=== PATIENT | female | born 1955 | race Caucasian/White ===

== ENCOUNTER → 2016-04-24 | Outpatient (REF) | payer MEDICARE, MEDICAID ==
[~2016-04-24] MED LIST: ACET500C PO; ACET50TAOT PO; ACET65TA; AMLO10TA; AMLO10TA PO; AMOX875T; ASPI81TAEC PO; CALC1CAP31 PO; CARD360C PO; CLONI1TA PO; COUM2.5T11 PO; DOCU100C PO; GABA300C3 PO; GABA300T; HUMA100I3 SC; HUMA75VL SC; HUMUINJ; HYDR25TAB PO; INSUDET SC; INSULADS SC; INSULANT; INSULANT SC; INSULIN LANTUS; LASI20TA PO; LEVO150T7 PO; LIDODERM PATCH; LOPR1TAB6 PO; MILKSUS PO; MYLASUS6 PO; NOVOLOG100 MG/ML; PERC5TAB8; PRIN10TA PO; SILVER SULFADIAZINE; VASO2.5T; VITA50003 PO; ZOCO20TA PO
[2016-04-24 19:38] LABS: ALBUMIN 3.1 GM/DL (3.2-5.2); ALBUMIN/GLOBULIN RATIO 0.84 (1.00-1.93); BILIRUBIN,TOTAL 0.2 MG/DL (0.2-1.0); CALCIUM LEVEL 8.7 MG/DL (8.8-10.2); CREATININE FOR GFR 3.86 MG/DL (0.55-1.02); GLOMERULAR FILTRATION RATE 12.7 (>45); POTASSIUM SERUM 5.1 MEQ/L (3.5-5.1); TOTAL PROTEIN 6.8 GM/DL (6.4-8.2)
== END ==
LOC: M SFHCADAM 14:34
PROVIDERS: ATTEND Family Medicine
DX: E11.9 Type 2 diabetes mellitus without complications (principal); Z23 Encounter for immunization
CPT/HCPCS: 80053; 83036; 90715; G0463

== ENCOUNTER → 2016-05-08 | Outpatient (REF) | payer MEDICARE, MEDICAID | LOC: M SFHCADAM 15:02 | PROVIDERS: ATTEND Family Medicine | DX: E11.9 Type 2 diabetes mellitus without complications (principal) ==

== ENCOUNTER → 2016-05-08 | Outpatient (REF) | payer MEDICARE, MEDICAID ==
[2016-05-08 16:51] LABS: BASO % 0.4 % (0.0-1.0); EOS # 0.3 K/mm3 (0.0-0.50); EOS % 4.4 % (0.0-3.0); LARGE UNSTAINED CELL # 0.1 K/mm3 (0.0-0.4); LYMPH # 1.1 K/mm3 (1.5-4.5); LYMPH % 17.8 % (24.0-44.0); MEAN CORPUSCULAR HEMOGLOBIN 26.7 pg (27.0-33.0); MEAN CORPUSCULAR VOLUME 83.3 fl (80.0-96.0); MONO # 0.3 K/mm3 (0.0-0.8); MONO % 5.1 % (0.0-5.0); NEUTROPHILS # 4.3 K/mm3 (1.8-7.7); NEUTROPHILS % 71.3 % (36.0-66.0); PLATELET COUNT, AUTOMATED 294 k/mm3 (150-450); RED CELL DISTRIBUTION WIDTH 13.8 % (11.5-14.5)
[2016-05-08 17:00] LABS: INR 1.05
[2016-05-08 17:06] LABS: CALCIUM LEVEL 8.8 MG/DL (8.8-10.2); CREATININE FOR GFR 3.74 MG/DL (0.55-1.02); GLOMERULAR FILTRATION RATE 13.1 (>45)
[2016-05-08 17:10] LABS: POTASSIUM SERUM 5.2 MEQ/L (3.5-5.1)
== END ==
LOC: M LABDRWAD 16:33
PROVIDERS: ATTEND Surgery Vascular Surgery
DX: Z01.818 Encounter for other preprocedural examination (principal); N18.6 End stage renal disease; I12.0 Hypertensive chronic kidney disease with stage 5 chronic kidney disease or end stage renal disease; Z79.4 Long term (current) use of insulin; Z79.899 Other long term (current) drug therapy; Z79.82 Long term (current) use of aspirin; E11.319 Type 2 diabetes mellitus with unspecified diabetic retinopathy without macular edema
CPT/HCPCS: 80048; 83036; 85025; 85610; 85730; G0463

== ENCOUNTER → 2016-05-21 | Outpatient (REF) | payer MEDICARE, MEDICAID ==
[2016-05-21 18:00] LABS: PERCENT SATURATION 12.7 % (13.2-37.4)
== END ==
LOC: M LAB REF 17:13
PROVIDERS: ATTEND Internal Medicine Nephrology
DX: N18.5 Chronic kidney disease, stage 5 (principal); D63.1 Anemia in chronic kidney disease

== ENCOUNTER 2016-06-08 09:22 | Outpatient (CLI) | payer MEDICARE, MEDICAID ==
[~2016-06-08] VITALS: Ht 165.1 cm; Wt 142.3 kg
[2016-06-08] MEDS ORDERED: IRON SUCROSE 25 MG in NS 50 ML IV ONE (11:00)
[2016-06-08] MEDS ORDERED: IRON SUCROSE 475 MG in NS 250 ML IV ONE (12:00)
[2016-06-08] MEDS ORDERED: LASI80TA PO (16:43)
[2016-06-08] MEDS ORDERED: LANTINJ4 SC ×2 (16:44)
[2016-06-08] MEDS ORDERED: METO25TA PO (16:45)
[2016-06-08] MEDS ORDERED: MIRA3350 PO (16:45)
[2016-06-08] MEDS ORDERED: PROC20004 SC (16:46)
[2016-06-08] MEDS ORDERED: RENV2TAB PO (16:46)
== END 2016-06-08 15:00 | disposition home or self-care (01) ==
LOC: M INFU 09:22
PROVIDERS: ATTEND Internal Medicine Nephrology
DX: D50.9 Iron deficiency anemia, unspecified (principal)
CPT/HCPCS: 96365; 96366; J1756

== ENCOUNTER → 2016-06-24 | Day surgery (SDC) | payer MEDICAID, MEDICARE ==
[~2016-06-24] VITALS: Ht 165.1 cm; Wt 147.4 kg
[~2016-06-24] MED LIST changes: +D5W/0.2% SODIUM CHLORIDE 1,000 ML IV SCH; +GABA-282 PO; -GABA300C3 PO; +LANTINJ4 SC; +LASI80TA PO; +LIDOCAINE 2% INJ 100 MG/5 ML SDV (FOR ANES.) As Ordered ONE; +LR 1,000 ML IV SCH; +METO25TA PO; +MIRA3350 PO; +PROC20004 SC; +PROPOFOL 500 MG/50 ML VIAL As Ordered ONE; +RENV2TAB PO
--- NOTE | 2016-06-24 08:02 | ROOR ---
Patient Name: Tanya Nieto Procedure Date: 06/24/2016 7:17 AM Date of : 1955 Age: 61 Room: Main OR Gender: Female Note Status: Finalized Procedure: Upper GI endoscopy Indications: Iron deficiency anemia Providers: Eduin GODDARD MD Referring MD: ANNE-MARIE MENON MD Requesting Provider: Medicines: Monitored Anesthesia Care Complications: No immediate complications. Procedure: Pre-Anesthesia Assessment: - The heart rate, respiratory rate, oxygen saturations, blood pressure, adequacy of pulmonary ventilation, and response to care were monitored throughout the procedure. The Endoscope was introduced through the mouth, and advanced to the second part of duodenum. The upper GI endoscopy was accomplished without difficulty. The patient tolerated the procedure well. Findings: The esophagus was normal. The stomach was normal. The examined duodenum was normal. Impression: - Normal esophagus. - Normal stomach. - Normal examined duodenum. - No specimens collected. Recommendation: - Perform a colonoscopy. Eduin Goddard MD Eduin GODDARD MD 06/24/2016 8:02:01 AM This report has been signed electronically. Number of Addenda: 0 Note Initiated On: 06/24/2016 7:17 AM Estimated Blood Loss: Estimated blood loss: none.
--- NOTE | 2016-06-24 08:07 | ROOR ---
Patient Name: Tanya Nieto Procedure Date: 06/24/2016 6:20 AM Date of : 1955 Age: 61 Gender: Female Note Status: Finalized Procedure: Colonoscopy Indications: Iron deficiency anemia Providers: Eduin GODDARD MD Referring MD: ANNE-MARIE MENON MD Requesting Provider: Medicines: Monitored Anesthesia Care Complications: No immediate complications. Procedure: Pre-Anesthesia Assessment: - The heart rate, respiratory rate, oxygen saturations, blood pressure, adequacy of pulmonary ventilation, and response to care were monitored throughout the procedure. The Colonoscope was introduced through the anus with the intention of advancing to the cecum. The scope was advanced to the transverse colon before the procedure was aborted. Medications were given. Findings: The perianal and digital rectal examinations were normal. (Colon Prep was POOR, Inadequate Visualisation) Copious quantities of stool was found in the entire colon, precluding visualization. Lavage of the area was performed, resulting in incomplete clearance with continued poor visualization. Impression: - (Colon Prep was POOR, Inadequate Visualisation) - Stool in the entire examined colon. - No specimens collected. Recommendation: - Repeat colonoscopy at the next available appointment because the bowel preparation was poor. Eduin Goddard MD Eduin GODDARD MD 06/24/2016 8:07:45 AM This report has been signed electronically. Number of Addenda: 0 Note Initiated On: 06/24/2016 6:20 AM Estimated Blood Loss: Estimated blood loss: none.
[2016-06-24 08:55] VITALS: BP 168/75
== END | disposition home or self-care (01) ==
LOC: M SDC 05:59
PROVIDERS: ATTEND Internal Medicine Gastroenterology
DX: D50.9 Iron deficiency anemia, unspecified (principal); I50.9 Heart failure, unspecified; I12.0 Hypertensive chronic kidney disease with stage 5 chronic kidney disease or end stage renal disease; E78.00 Pure hypercholesterolemia, unspecified; E11.22 Type 2 diabetes mellitus with diabetic chronic kidney disease; E03.9 Hypothyroidism, unspecified; R29.898 Other symptoms and signs involving the musculoskeletal system; N18.5 Chronic kidney disease, stage 5; Z91.040 Latex allergy status; Z79.899 Other long term (current) drug therapy; Z79.82 Long term (current) use of aspirin

== ENCOUNTER → 2016-08-07 | Outpatient (REF) | payer MEDICARE, MEDICAID ==
[~2016-08-07] MED LIST changes: -D5W/0.2% SODIUM CHLORIDE 1,000 ML IV SCH; -LIDOCAINE 2% INJ 100 MG/5 ML SDV (FOR ANES.) As Ordered ONE; -LR 1,000 ML IV SCH; -PROPOFOL 500 MG/50 ML VIAL As Ordered ONE
[2016-08-07 18:40] LABS: CHOLESTEROL LEVEL 141 MG/DL (<200); TRIGLYCERIDES LEVEL 126 MG/DL (<150)
[2016-08-10 10:34] LABS: HEPATITIS B SURFACE ANTIBODY NEGATIVE (POSITIVE)
== END ==
LOC: M LAB REF 16:49
PROVIDERS: ATTEND Internal Medicine Nephrology
DX: N39.0 Urinary tract infection, site not specified (principal); N18.5 Chronic kidney disease, stage 5

== ENCOUNTER → 2016-08-10 | Outpatient (REF) | payer MEDICARE, MEDICAID | LOC: M SFHCADAM 16:03 | PROVIDERS: ATTEND Family Medicine | DX: E11.9 Type 2 diabetes mellitus without complications (principal) | CPT/HCPCS: 83036; G0463 ==

== ENCOUNTER → 2016-08-18 | Outpatient (CLI) | payer MEDICARE ==
[~2016-08-18] MED LIST changes: +HEPARIN 1,000 UNITS/ML 10ML VIAL (FOR RADIOLOGY& DIALYSIS ONLY) As Ordered ONE; +LIDOCAINE W/EPINEPHRINE 1% 20ML VIAL As Ordered ONE; +SODIUM BICARBONATE 4 % INJ 2.4MEQ 5 ML VIAL (THIS HAS A PRESERVATIVE) As Ordered ONE; +fentaNYL 100 MCG/2 ML INJECTION (J3010) As Ordered ONE
--- NOTE | 2016-08-18 15:56 | REPKIM ---
CLINICAL HISTORY: Renal failure, CHF and non-matured left forearm AVF. The referring nephrology service has requested a tunneled dialysis catheter placement for hemodialysis. PROCEDURE PERFORMED: Right IJ Tunneled Hemodialysis Catheter Placement INTERVENTIONALIST: Marta Draper MD CONSENT: The risks, benefits and alternatives to the procedure were explained to the patient and informed written consent was obtained. MEDICATIONS: Local Lidocaine and Fentanyl 50 mcg IV. Independent trained observer was present during the entire duration of the procedure for monitoring. EBL: 10 mL DEVICE USED: 14.5-Haitian 23-cm tip to cuff Palindrome Catheter Lot#[id number] FLUORO TIME: 0.6 minutes PROCEDURE/FINDINGS: The patient was brought to the interventional radiology suite where a timeout procedure was performed. The patient was placed in the supine position. The right neck and upper chest were prepped and draped in the usual sterile fashion. Real time ultrasound was used and permanent image stored. Using ultrasound guidance the internal jugular vein was punctured with a micropunture needle, after infiltration of the skin and deep tissues with local anesthetic. A 23-cm tip to cuff length, 14.5-Haitian dual lumen Palindrome hemodialysis catheter was inserted. The catheter was placed through a subcutaneous tunnel requiring a second incision. The incision at the base of the neck was closed with 4-0 Vicryl suture and covered with steristrips. The catheter was secured at the skin exit site with 2-0 Prolene suture. The ports of the catheter were locked with heparin (1000 units/mL). A sterile dressing was then applied. Post procedure chest fluoroscopy showed the tip of the catheter at the proximal right atrium. The patient tolerated the procedure well with no immediate complications. This procedure was performed using ultrasound and fluoroscopy. Dr. Draper was present. IMPRESSION: 1. Ultrasound of the neck demonstrates patent right IJ vein and compressible. 2. Successful right IJ tunneled hemodialysis catheter placement as discussed above. There is free aspiration of blood from all ports of the catheter. The catheter is ready for immediate use. cc: Abby Rodriguez MD [facility]PITALEmma
== END | disposition home or self-care (01) ==
LOC: M IRPRO 13:28
PROVIDERS: ATTEND Internal Medicine Nephrology
DX: N18.6 End stage renal disease (principal)
CPT/HCPCS: 36558; 76937; 77001; C1750; C1769; C1894; J3010

== ENCOUNTER 2017-02-03 12:43 | Emergency (ER) | payer MEDICARE, MEDICAID ==
[~2017-02-03] VITALS: Ht 160 cm; Wt 146.5 kg
[~2017-02-03 12:43] MED LIST changes: -COUM2.5T11 PO; +COUM2.5T17 PO; -DOCU100C PO; +DOCU100C16 PO; -HEPARIN 1,000 UNITS/ML 10ML VIAL (FOR RADIOLOGY& DIALYSIS ONLY) As Ordered ONE; -LIDOCAINE W/EPINEPHRINE 1% 20ML VIAL As Ordered ONE; -SODIUM BICARBONATE 4 % INJ 2.4MEQ 5 ML VIAL (THIS HAS A PRESERVATIVE) As Ordered ONE; +VITA1CAP40 PO; -VITA50003 PO; -fentaNYL 100 MCG/2 ML INJECTION (J3010) As Ordered ONE
[2017-02-03] MEDS ORDERED: NS 1,000 ML IV SCH (13:01)
[2017-02-03] MEDS ORDERED: DIALTAB2 PO (13:06)
[2017-02-03] MEDS ORDERED: CLON0.2T PO (13:06)
[2017-02-03] MEDS ORDERED: COLA100C5 PO (13:06)
[2017-02-03] MEDS ORDERED: RENV2TAB PO (13:06)
[2017-02-03] MEDS ORDERED: ONDANSETRON 4MG/2ML VIAL (J2405) IV ONE (13:15)
[2017-02-03] MEDS ORDERED: PANTOPRAZOLE 40MG INJ (PROTONIX) (C9113) IV ONE (13:15)
[2017-02-03] MEDS ORDERED: LABETALOL HCL 100 MG/20 ML VIAL IV STA (14:15)
[2017-02-03 14:24] LABS: BASO % 0.2 % (0.0-1.0); EOS % 0.2 % (0.0-3.0); IMMATURE GRANULOCYTE % 0.5 % (0-0); LYMPH # 0.9 10^3/uL (1.5-4.5); MEAN CORPUSCULAR HEMOGLOBIN 32.3 pg (27.0-33.0); MEAN CORPUSCULAR HGB CONC 33.7 g/dl (32.0-36.5); MEAN CORPUSCULAR VOLUME 95.8 fl (80.0-96.0); MONO # 0.4 10^3/uL (0.0-0.8); MONO % 9.2 % (0.0-5.0); NEUTROPHILS # 2.9 10^3/uL (1.8-7.7); NEUTROPHILS % 68.9 % (36.0-66.0); PLATELET COUNT, AUTOMATED 128 10^3/uL (150-450); RED CELL DISTRIBUTION WIDTH 13.7 % (11.5-14.5); WHITE BLOOD COUNT 4.2 10^3/uL (4.0-10.0)
[2017-02-03 14:49] LABS: ALBUMIN 3.2 GM/DL (3.2-5.2); ALBUMIN/GLOBULIN RATIO 0.97 (1.00-1.93); BILIRUBIN,DIRECT 0.1 MG/DL (0.0-0.2); BILIRUBIN,TOTAL 0.3 MG/DL (0.2-1.0); CALCIUM LEVEL 8.5 MG/DL (8.8-10.2); CREATININE FOR GFR 3.66 MG/DL (0.55-1.02); GLOMERULAR FILTRATION RATE 13.5 (>45); POTASSIUM SERUM 4.8 MEQ/L (3.5-5.1); TOTAL PROTEIN 6.5 GM/DL (6.4-8.2)
[2017-02-03 15:28] VITALS: BP 198/91
[2017-02-03 16:21] VITALS: BP 140/66
[2017-02-03] MEDS ORDERED: ZOFR4TAB3 PO (16:24)
--- NOTE | 2017-02-03 21:02 | REP ---
Abdomen series: Four views. History: Abdomen pain. Comparison: Chest x-ray October 07, 2015. Findings: Upright chest radiograph shows EKG monitoring electrodes. A right internal jugular tunneled catheter is seen in place with its tip in the expected location of the right atrium. Mild cardiomegaly is observed. Pulmonary vasculature is cephalized. These findings are unchanged. There is no evidence of infiltrate or free subdiaphragmatic air. Supine and cross-table lateral views of the abdomen show no evidence of free air. The bowel gas pattern is normal with air and stool in a nondistended colon. No small or large bowel dilation is seen. There is some vascular calcification. No bony destructive lesion is seen. Impression: Normal bowel gas pattern. No evidence of infiltrate or free air. Cardiomegaly. Central venous line. Pulmonary vascular cephalization. Signed by Antolin Mcgregor MD 02/04/2017 07:40 A
--- NOTE | 2017-02-04 08:55 | ED PDOC ---
Post-Departure Follow-Up radiology report faxed to Roula Altman MD Feb 04, 2017 08:55
== END 2017-02-03 16:44 | disposition home or self-care (01) ==
LOC: EDBD 12:43 → M ED 12:43
DX: I11.0 Hypertensive heart disease with heart failure (principal); R11.10 Vomiting, unspecified; I50.9 Heart failure, unspecified; I25.10 Atherosclerotic heart disease of native coronary artery without angina pectoris; E11.9 Type 2 diabetes mellitus without complications; Z79.4 Long term (current) use of insulin; Z79.82 Long term (current) use of aspirin; Z79.899 Other long term (current) drug therapy; Z91.040 Latex allergy status
CPT/HCPCS: 36415; 74022; 80048; 80076; 83690; 85025; 96374; 96375; 99285; C9113; J2405

== ENCOUNTER → 2017-05-14 | Outpatient (CLI) | payer MEDICARE, MEDICAID ==
[~2017-05-14] MED LIST changes: -ACET500C PO; -ACET50TAOT PO; -ACET65TA; -AMLO10TA; -AMLO10TA PO; -AMOX875T; -ASPI81TAEC PO; -CALC1CAP31 PO; -CARD360C PO; -CLONI1TA PO; -COUM2.5T17 PO; -DOCU100C16 PO; -GABA-282 PO; -GABA300T; -HUMA100I3 SC; -HUMA75VL SC; -HUMUINJ; -HYDR25TAB PO; -INSUDET SC; -INSULADS SC; -INSULANT; -INSULANT SC; -INSULIN LANTUS; -LANTINJ4 SC; -LASI20TA PO; -LASI80TA PO; -LEVO150T7 PO; +LIDOCAINE 1% MDV 20ML VIAL As Ordered; -LIDODERM PATCH; -LOPR1TAB6 PO; -METO25TA PO; -MILKSUS PO; -MIRA3350 PO; -MYLASUS6 PO; -NOVOLOG100 MG/ML; -PERC5TAB8; -PRIN10TA PO; -PROC20004 SC; -RENV2TAB PO; -SILVER SULFADIAZINE; -VASO2.5T; -VITA1CAP40 PO; -ZOCO20TA PO
== END | disposition home or self-care (01) ==
LOC: M IRPRO 10:47
DX: Z45.2 Encounter for adjustment and management of vascular access device (principal); N18.6 End stage renal disease
CPT/HCPCS: 36589

== ENCOUNTER 2017-07-15 17:18 | Inpatient (IN) | payer MEDICARE, MEDICAID ==
[2017-07-15 20:47] LABS: HEMATOCRIT 35.8 % (36.0-47.0); HEMOGLOBIN 11.8 g/dl (12.0-15.5); MEAN CORPUSCULAR HEMOGLOBIN 30.3 pg (27.0-33.0); PLATELET COUNT, AUTOMATED 183 10^3/uL (150-450); RED BLOOD COUNT 3.89 10^6/uL (4.00-5.40); RED CELL DISTRIBUTION WIDTH 13.2 % (11.5-14.5); WHITE BLOOD COUNT 6.5 10^3/uL (4.0-10.0)
[2017-07-15 20:58] LABS: INR 2.01; PROTHROMBIN TIME 23.5 SECONDS (12.4-14.5)
[2017-07-15] MEDS: LEVEMIR (INSULIN DETEMIR) 1 UNITS/0.01ML SC (21:00)
[2017-07-15] MEDS: SIMVASTATIN 20 MG TAB PO (21:00)
[2017-07-15 21:12] LABS: ALBUMIN 3.5 GM/DL (3.2-5.2); ALKALINE PHOSPHATASE 113 U/L (45-117); ALT/SGPT 21 U/L (12-78); ANION GAP 7 MEQ/L (8-16); AST/SGOT 16 U/L (7-37); BILIRUBIN,TOTAL 0.4 MG/DL (0.2-1.0); BLOOD UREA NITROGEN 19 MG/DL (7-18); CALCIUM LEVEL 8.6 MG/DL (8.8-10.2); CARBON DIOXIDE LEVEL 31 MEQ/L (21-32); CHLORIDE LEVEL 102 MEQ/L (98-107); CREATININE FOR GFR 2.64 MG/DL (0.55-1.30); GLOMERULAR FILTRATION RATE 19.6 (>45); GLUCOSE, FASTING 128 MG/DL (70-100); POTASSIUM SERUM 3.8 MEQ/L (3.5-5.1); SODIUM LEVEL 140 MEQ/L (136-145); TOTAL PROTEIN 7.4 GM/DL (6.4-8.2)
[2017-07-15] MEDS ORDERED: BISACODYL 5 MG TAB PO (21:30)
[2017-07-15] MEDS ORDERED: DEXTROSE 50% 50 ML SYRINGE IV (22:00)
[2017-07-15] MEDS ORDERED: GLUCAGON FOR INJ 1 MG VIAL (J1610) SC (22:00)
[2017-07-15] MEDS ORDERED: GLUCOSE 4 GM CHEW TABLET PO (22:00)
[2017-07-15 22:48] LABS: BEDSIDE GLUCOSE 104 MG/DL (80-115)
[2017-07-15] MEDS: GABAPENTIN 300 MG CAP PO (23:49)
[2017-07-15] MEDS: SENOKOT S TAB PO (23:49)
[2017-07-15] MEDS: cloNIDine 0.2 MG TAB PO (23:53)
[2017-07-16] MEDS: NORCO, ANEXSIA 5/325MG TABLET (HYDROcodone/ACETAMINOPHEN) PO ×3 (01:24→12:49)
[2017-07-16] MEDS: LEVOTHYROXINE 150MCG TABLET (0.15MG) PO (05:39)
[2017-07-16 06:32] LABS: BEDSIDE GLUCOSE 113 MG/DL (80-115)
[2017-07-16] MEDS: LEVEMIR (INSULIN DETEMIR) 1 UNITS/0.01ML SC ×2 (07:49→21:04)
[2017-07-16] MEDS: HumaLOG INSULIN (NovoLOG) PER UNIT SC ×4 (07:49→21:04)
[2017-07-16] MEDS: SENOKOT S TAB PO ×2 (07:50→21:01)
[2017-07-16] MEDS: cloNIDine 0.2 MG TAB PO ×2 (07:50→21:07)
[2017-07-16] MEDS: (RENVELA) SEVELAMER **CARBONate** 800 MG TAB PO ×3 (07:50→18:11)
[2017-07-16 07:53] LABS: BEDSIDE GLUCOSE 117 MG/DL (80-115)
[2017-07-16 11:54] LABS: BEDSIDE GLUCOSE 136 MG/DL (80-115)
[2017-07-16 17:04] LABS: BEDSIDE GLUCOSE 133 MG/DL (80-115)
[2017-07-16] MEDS: WARFARIN SOD 3 MG TAB PO (18:11)
[2017-07-16 20:29] LABS: BEDSIDE GLUCOSE 107 MG/DL (80-115)
[2017-07-16] MEDS: GABAPENTIN 300 MG CAP PO (21:01)
[2017-07-16] MEDS: SIMVASTATIN 20 MG TAB PO (21:08)
[2017-07-17 05:30] LABS: HEMATOCRIT 32.1 % (36.0-47.0); HEMOGLOBIN 10.5 g/dl (12.0-15.5); MEAN CORPUSCULAR HEMOGLOBIN 31.1 pg (27.0-33.0); MEAN CORPUSCULAR HGB CONC 32.7 g/dl (32.0-36.5); PLATELET COUNT, AUTOMATED 176 10^3/uL (150-450); RED BLOOD COUNT 3.38 10^6/uL (4.00-5.40); RED CELL DISTRIBUTION WIDTH 13.3 % (11.5-14.5); WHITE BLOOD COUNT 7.2 10^3/uL (4.0-10.0)
[2017-07-17 05:42] LABS: INR 1.63; PROTHROMBIN TIME 19.8 SECONDS (12.4-14.5)
[2017-07-17 05:57] LABS: ALBUMIN 2.9 GM/DL (3.2-5.2); ALBUMIN/GLOBULIN RATIO 0.76 (1.00-1.93); ALKALINE PHOSPHATASE 87 U/L (45-117); ALT/SGPT 18 U/L (12-78); ANION GAP 7 MEQ/L (8-16); AST/SGOT 16 U/L (7-37); BILIRUBIN,TOTAL 0.4 MG/DL (0.2-1.0); CALCIUM LEVEL 8.4 MG/DL (8.8-10.2); CARBON DIOXIDE LEVEL 30 MEQ/L (21-32); CHLORIDE LEVEL 104 MEQ/L (98-107); GLUCOSE, FASTING 172 MG/DL (70-100); POTASSIUM SERUM 4.3 MEQ/L (3.5-5.1); SODIUM LEVEL 141 MEQ/L (136-145); TOTAL PROTEIN 6.7 GM/DL (6.4-8.2)
[2017-07-17] MEDS: (RENVELA) SEVELAMER **CARBONate** 800 MG TAB PO ×3 (06:08→18:07)
[2017-07-17] MEDS: SENOKOT S TAB PO ×2 (06:08→20:49)
[2017-07-17] MEDS: LEVOTHYROXINE 150MCG TABLET (0.15MG) PO (06:08)
[2017-07-17] MEDS: cloNIDine 0.2 MG TAB PO ×2 (06:16→20:48)
[2017-07-17 06:20] LABS: GLOMERULAR FILTRATION RATE 10.9 (>45)
[2017-07-17 06:23] LABS: BLOOD UREA NITROGEN 38 MG/DL (7-18); CREATININE FOR GFR 4.39 MG/DL (0.55-1.30)
[2017-07-17] MEDS: LEVEMIR (INSULIN DETEMIR) 1 UNITS/0.01ML SC ×2 (06:45→20:49)
[2017-07-17] MEDS: HumaLOG INSULIN (NovoLOG) PER UNIT SC ×4 (06:58→20:35)
[2017-07-17] MEDS: NORCO, ANEXSIA 5/325MG TABLET (HYDROcodone/ACETAMINOPHEN) PO (09:18)
[2017-07-17] MEDS: LIDOCAINE 1% SDV 5 ML VIAL SQ (10:30)
[2017-07-17] MEDS: HEPARIN 1,000 UNITS/ML 10ML VIAL (FOR RADIOLOGY& DIALYSIS ONLY) IV (10:30)
[2017-07-17 11:48] LABS: BEDSIDE GLUCOSE 172 MG/DL (80-115)
[2017-07-17] MEDS: WARFARIN SOD 4 MG TAB PO (18:05)
[2017-07-17 18:07] LABS: BEDSIDE GLUCOSE 126 MG/DL (80-115)
[2017-07-17 20:32] LABS: BEDSIDE GLUCOSE 173 MG/DL (80-115)
[2017-07-17] MEDS: GABAPENTIN 300 MG CAP PO (20:47)
[2017-07-17] MEDS: SIMVASTATIN 20 MG TAB PO (20:48)
[2017-07-17] MEDS: ONDANSETRON 4MG/2ML VIAL (J2405) IV (21:50)
[2017-07-18 05:38] LABS: HEMOGLOBIN 10.6 g/dl (12.0-15.5); MEAN CORPUSCULAR HEMOGLOBIN 31.5 pg (27.0-33.0); MEAN CORPUSCULAR HGB CONC 33.1 g/dl (32.0-36.5); MEAN CORPUSCULAR VOLUME 95.2 fl (80.0-96.0); PLATELET COUNT, AUTOMATED 171 10^3/uL (150-450); RED BLOOD COUNT 3.36 10^6/uL (4.00-5.40); WHITE BLOOD COUNT 6.7 10^3/uL (4.0-10.0)
[2017-07-18 05:55] LABS: INR 1.78; PROTHROMBIN TIME 21.2 SECONDS (12.4-14.5)
[2017-07-18 06:03] LABS: ALBUMIN 2.8 GM/DL (3.2-5.2); ALBUMIN/GLOBULIN RATIO 0.72 (1.00-1.93); ALKALINE PHOSPHATASE 87 U/L (45-117); ALT/SGPT 15 U/L (12-78); ANION GAP 5 MEQ/L (8-16); AST/SGOT 14 U/L (7-37); BILIRUBIN,TOTAL 0.4 MG/DL (0.2-1.0); BLOOD UREA NITROGEN 24 MG/DL (7-18); CALCIUM LEVEL 8.3 MG/DL (8.8-10.2); CARBON DIOXIDE LEVEL 31 MEQ/L (21-32); CHLORIDE LEVEL 104 MEQ/L (98-107); CREATININE FOR GFR 3.34 MG/DL (0.55-1.30); GLOMERULAR FILTRATION RATE 14.9 (>45); GLUCOSE, FASTING 177 MG/DL (70-100); POTASSIUM SERUM 4.4 MEQ/L (3.5-5.1); SODIUM LEVEL 140 MEQ/L (136-145); TOTAL PROTEIN 6.7 GM/DL (6.4-8.2)
[2017-07-18] MEDS: LEVOTHYROXINE 150MCG TABLET (0.15MG) PO (06:03)
[2017-07-18] MEDS: HumaLOG INSULIN (NovoLOG) PER UNIT SC ×4 (08:30→20:29)
[2017-07-18] MEDS: LEVEMIR (INSULIN DETEMIR) 1 UNITS/0.01ML SC ×2 (08:31→20:58)
[2017-07-18] MEDS: (RENVELA) SEVELAMER **CARBONate** 800 MG TAB PO ×3 (08:31→17:50)
[2017-07-18] MEDS: SENOKOT S TAB PO ×2 (08:32→20:56)
[2017-07-18] MEDS: cloNIDine 0.2 MG TAB PO ×2 (08:32→20:57)
[2017-07-18 11:46] LABS: BEDSIDE GLUCOSE 204 MG/DL (80-115)
[2017-07-18] MEDS ORDERED: WARFARIN SOD 4 MG TAB PO (17:00)
[2017-07-18 17:18] LABS: BEDSIDE GLUCOSE 168 MG/DL (80-115)
[2017-07-18] MEDS: WARFARIN SOD 5 MG TAB PO (17:49)
[2017-07-18 20:44] LABS: BEDSIDE GLUCOSE 140 MG/DL (80-115)
[2017-07-18] MEDS: GABAPENTIN 300 MG CAP PO (20:56)
[2017-07-18] MEDS: OMEPRAZOLE 20 MG CAP PO (20:57)
[2017-07-18] MEDS: SIMVASTATIN 20 MG TAB PO (20:58)
[2017-07-19] MEDS: LEVOTHYROXINE 150MCG TABLET (0.15MG) PO (05:53)
[2017-07-19 06:04] LABS: HEMATOCRIT 31.5 % (36.0-47.0); HEMOGLOBIN 10.7 g/dl (12.0-15.5); MEAN CORPUSCULAR HEMOGLOBIN 32.5 pg (27.0-33.0); MEAN CORPUSCULAR VOLUME 95.7 fl (80.0-96.0); PLATELET COUNT, AUTOMATED 181 10^3/uL (150-450); RED BLOOD COUNT 3.29 10^6/uL (4.00-5.40); RED CELL DISTRIBUTION WIDTH 13.2 % (11.5-14.5); WHITE BLOOD COUNT 7.6 10^3/uL (4.0-10.0)
[2017-07-19 06:31] LABS: INR 1.98; PROTHROMBIN TIME 23.2 SECONDS (12.4-14.5)
[2017-07-19 06:33] LABS: ALBUMIN 2.6 GM/DL (3.2-5.2); ALBUMIN/GLOBULIN RATIO 0.63 (1.00-1.93); ALKALINE PHOSPHATASE 81 U/L (45-117); ALT/SGPT 12 U/L (12-78); ANION GAP 9 MEQ/L (8-16); AST/SGOT 16 U/L (7-37); BILIRUBIN,TOTAL 0.3 MG/DL (0.2-1.0); BLOOD UREA NITROGEN 40 MG/DL (7-18); CALCIUM LEVEL 8.4 MG/DL (8.8-10.2); CARBON DIOXIDE LEVEL 25 MEQ/L (21-32); CHLORIDE LEVEL 106 MEQ/L (98-107); CREATININE FOR GFR 4.72 MG/DL (0.55-1.30); GLUCOSE, FASTING 108 MG/DL (70-100); POTASSIUM SERUM 4.5 MEQ/L (3.5-5.1); SODIUM LEVEL 140 MEQ/L (136-145); TOTAL PROTEIN 6.7 GM/DL (6.4-8.2)
[2017-07-19 06:36] LABS: BEDSIDE GLUCOSE 109 MG/DL (80-115)
[2017-07-19] MEDS: (RENVELA) SEVELAMER **CARBONate** 800 MG TAB PO ×3 (08:18→17:15)
[2017-07-19] MEDS: SENOKOT S TAB PO ×3 (08:18→22:06)
[2017-07-19] MEDS: cloNIDine 0.2 MG TAB PO ×2 (08:19→22:06)
[2017-07-19] MEDS: LEVEMIR (INSULIN DETEMIR) 1 UNITS/0.01ML SC ×2 (08:20→22:07)
[2017-07-19] MEDS: HumaLOG INSULIN (NovoLOG) PER UNIT SC ×4 (08:21→21:00)
[2017-07-19] MEDS: NORCO, ANEXSIA 5/325MG TABLET (HYDROcodone/ACETAMINOPHEN) PO ×2 (08:44→17:13)
[2017-07-19 12:30] LABS: BEDSIDE GLUCOSE 220 MG/DL (80-115)
[2017-07-19 17:07] LABS: BEDSIDE GLUCOSE 177 MG/DL (80-115)
[2017-07-19] MEDS: WARFARIN SOD 3 MG TAB PO (17:08)
[2017-07-19 20:46] LABS: BEDSIDE GLUCOSE 214 MG/DL (80-115)
[2017-07-19] MEDS: GABAPENTIN 300 MG CAP PO (22:06)
[2017-07-19] MEDS: SIMVASTATIN 20 MG TAB PO (22:06)
[2017-07-20] MEDS: NORCO, ANEXSIA 5/325MG TABLET (HYDROcodone/ACETAMINOPHEN) PO (01:05)
[2017-07-20 06:01] LABS: INR 2.42; PROTHROMBIN TIME 27.3 SECONDS (12.4-14.5)
[2017-07-20] MEDS: SENOKOT S TAB PO ×2 (06:07→21:49)
[2017-07-20] MEDS: LEVOTHYROXINE 150MCG TABLET (0.15MG) PO (06:08)
[2017-07-20] MEDS: cloNIDine 0.2 MG TAB PO ×2 (06:10→21:49)
[2017-07-20 06:12] LABS: ALBUMIN 2.8 GM/DL (3.2-5.2); ALKALINE PHOSPHATASE 83 U/L (45-117); ALT/SGPT 14 U/L (12-78); ANION GAP 7 MEQ/L (8-16); AST/SGOT 17 U/L (7-37); BILIRUBIN,TOTAL 0.3 MG/DL (0.2-1.0); BLOOD UREA NITROGEN 58 MG/DL (7-18); CALCIUM LEVEL 8.2 MG/DL (8.8-10.2); CARBON DIOXIDE LEVEL 28 MEQ/L (21-32); CHLORIDE LEVEL 103 MEQ/L (98-107); CREATININE FOR GFR 5.24 MG/DL (0.55-1.30); GLOMERULAR FILTRATION RATE 8.9 (>45); GLUCOSE, FASTING 178 MG/DL (70-100); POTASSIUM SERUM 4.5 MEQ/L (3.5-5.1); SODIUM LEVEL 138 MEQ/L (136-145); TOTAL PROTEIN 6.3 GM/DL (6.4-8.2)
[2017-07-20] MEDS: (RENVELA) SEVELAMER **CARBONate** 800 MG TAB PO ×3 (06:41→17:47)
[2017-07-20] MEDS: HumaLOG INSULIN (NovoLOG) PER UNIT SC ×4 (07:08→21:00)
[2017-07-20] MEDS: LEVEMIR (INSULIN DETEMIR) 1 UNITS/0.01ML SC ×2 (07:09→21:52)
[2017-07-20 12:07] LABS: BEDSIDE GLUCOSE 174 MG/DL (80-115)
[2017-07-20] MEDS: BETAMETHASONE VAL 0.1% CR 15 GM TOP ×2 (12:29→22:56)
[2017-07-20 17:15] LABS: BEDSIDE GLUCOSE 144 MG/DL (80-115)
[2017-07-20] MEDS: WARFARIN SOD 3 MG TAB PO (17:46)
[2017-07-20] MEDS: ONDANSETRON 4 MG TAB (S0181) PO (17:53)
[2017-07-20 20:26] LABS: BEDSIDE GLUCOSE 198 MG/DL (80-115)
[2017-07-20] MEDS: SIMVASTATIN 20 MG TAB PO (21:49)
[2017-07-20] MEDS: GABAPENTIN 300 MG CAP PO (21:50)
[2017-07-21 02:13] LABS: BEDSIDE GLUCOSE 214 MG/DL (80-115)
[2017-07-21 06:24] LABS: ALBUMIN 2.8 GM/DL (3.2-5.2); ALBUMIN/GLOBULIN RATIO 0.76 (1.00-1.93); ALKALINE PHOSPHATASE 86 U/L (45-117); ALT/SGPT 14 U/L (12-78); ANION GAP 8 MEQ/L (8-16); AST/SGOT 15 U/L (7-37); BILIRUBIN,TOTAL 0.3 MG/DL (0.2-1.0); BLOOD UREA NITROGEN 35 MG/DL (7-18); CALCIUM LEVEL 8.1 MG/DL (8.8-10.2); CARBON DIOXIDE LEVEL 28 MEQ/L (21-32); CHLORIDE LEVEL 103 MEQ/L (98-107); CREATININE FOR GFR 4.08 MG/DL (0.55-1.30); GLOMERULAR FILTRATION RATE 11.8 (>45); GLUCOSE, FASTING 191 MG/DL (70-100); POTASSIUM SERUM 4.2 MEQ/L (3.5-5.1); SODIUM LEVEL 139 MEQ/L (136-145); TOTAL PROTEIN 6.5 GM/DL (6.4-8.2)
[2017-07-21] MEDS: LEVOTHYROXINE 150MCG TABLET (0.15MG) PO (06:49)
[2017-07-21 08:02] LABS: INR 2.11; PROTHROMBIN TIME 24.4 SECONDS (12.4-14.5)
[2017-07-21] MEDS: cloNIDine 0.2 MG TAB PO ×2 (08:46→20:50)
[2017-07-21] MEDS: HumaLOG INSULIN (NovoLOG) PER UNIT SC ×4 (08:47→20:50)
[2017-07-21] MEDS: LEVEMIR (INSULIN DETEMIR) 1 UNITS/0.01ML SC ×2 (08:47→20:51)
[2017-07-21] MEDS: (RENVELA) SEVELAMER **CARBONate** 800 MG TAB PO ×3 (08:47→17:41)
[2017-07-21] MEDS: SENOKOT S TAB PO ×2 (08:47→20:50)
[2017-07-21] MEDS: BETAMETHASONE VAL 0.1% CR 15 GM TOP ×2 (08:48→20:53)
[2017-07-21 12:28] LABS: BEDSIDE GLUCOSE 240 MG/DL (80-115)
[2017-07-21] MEDS: NORCO, ANEXSIA 5/325MG TABLET (HYDROcodone/ACETAMINOPHEN) PO (12:54)
[2017-07-21 17:21] LABS: BEDSIDE GLUCOSE 182 MG/DL (80-115)
[2017-07-21] MEDS: WARFARIN SOD 3 MG TAB PO (17:41)
[2017-07-21] MEDS: ONDANSETRON 4 MG TAB (S0181) PO (20:48)
[2017-07-21] MEDS: SIMVASTATIN 20 MG TAB PO (20:49)
[2017-07-21] MEDS: GABAPENTIN 300 MG CAP PO (20:49)
[2017-07-21 21:24] LABS: BEDSIDE GLUCOSE 239 MG/DL (80-115)
[2017-07-22] MEDS: LEVOTHYROXINE 150MCG TABLET (0.15MG) PO (06:18)
[2017-07-22] MEDS: (RENVELA) SEVELAMER **CARBONate** 800 MG TAB PO ×4 (06:49→18:00)
[2017-07-22] MEDS: cloNIDine 0.2 MG TAB PO ×2 (06:49→20:38)
[2017-07-22] MEDS: SENOKOT S TAB PO ×2 (06:55→20:38)
[2017-07-22] MEDS: LEVEMIR (INSULIN DETEMIR) 1 UNITS/0.01ML SC ×2 (06:55→20:39)
[2017-07-22] MEDS: HumaLOG INSULIN (NovoLOG) PER UNIT SC ×4 (07:06→20:28)
[2017-07-22 07:36] LABS: BEDSIDE GLUCOSE 183 MG/DL (80-115)
[2017-07-22] MEDS: HEPARIN 1,000 UNITS/ML 10ML VIAL (FOR RADIOLOGY& DIALYSIS ONLY) IV (11:15)
[2017-07-22 13:17] LABS: BEDSIDE GLUCOSE 117 MG/DL (80-115)
[2017-07-22] MEDS: BETAMETHASONE VAL 0.1% CR 15 GM TOP ×2 (13:45→20:39)
[2017-07-22 17:59] LABS: BEDSIDE GLUCOSE 175 MG/DL (80-115)
[2017-07-22] MEDS: WARFARIN SOD 3 MG TAB PO (18:20)
[2017-07-22] MEDS: ONDANSETRON 4 MG TAB (S0181) PO (18:20)
[2017-07-22 20:32] LABS: BEDSIDE GLUCOSE 173 MG/DL (80-115)
[2017-07-22] MEDS: SIMVASTATIN 20 MG TAB PO (20:38)
[2017-07-22] MEDS: GABAPENTIN 300 MG CAP PO (20:38)
[2017-07-23] MEDS: LEVOTHYROXINE 150MCG TABLET (0.15MG) PO (05:35)
[2017-07-23 06:45] LABS: BEDSIDE GLUCOSE 166 MG/DL (80-115)
[2017-07-23] MEDS: SENOKOT S TAB PO (07:43)
[2017-07-23] MEDS: LEVEMIR (INSULIN DETEMIR) 1 UNITS/0.01ML SC (07:43)
[2017-07-23] MEDS: (RENVELA) SEVELAMER **CARBONate** 800 MG TAB PO (07:43)
[2017-07-23] MEDS: HumaLOG INSULIN (NovoLOG) PER UNIT SC (07:43)
[2017-07-23] MEDS: BETAMETHASONE VAL 0.1% CR 15 GM TOP (07:44)
[2017-07-23] MEDS: cloNIDine 0.2 MG TAB PO (07:44)
== END 2017-07-23 10:10 | DRG 562 ==
LOC: M MSPAV 07-17 23:44 → M ED 17:18 → M ED INP 21:22 → M MSPAV 23:04
PROC: 5A1D70Z Performance of Urinary Filtration, Intermittent, Less than 6 Hours Per Day (ICD-10-PCS; principal; 2017-07-17)
DX: S82.142A Displaced bicondylar fracture of left tibia, initial encounter for closed fracture (principal); N18.6 End stage renal disease; I13.2 Hypertensive heart and chronic kidney disease with heart failure and with stage 5 chronic kidney disease, or end stage renal disease; Z68.43 Body mass index [BMI] 50.0-59.9, adult; I50.32 Chronic diastolic (congestive) heart failure; E11.22 Type 2 diabetes mellitus with diabetic chronic kidney disease; E78.5 Hyperlipidemia, unspecified; E03.9 Hypothyroidism, unspecified; E66.01 Morbid (severe) obesity due to excess calories; I89.0 Lymphedema, not elsewhere classified; E11.319 Type 2 diabetes mellitus with unspecified diabetic retinopathy without macular edema; H54.8 Legal blindness, as defined in USA; I87.2 Venous insufficiency (chronic) (peripheral); E11.610 Type 2 diabetes mellitus with diabetic neuropathic arthropathy; E11.40 Type 2 diabetes mellitus with diabetic neuropathy, unspecified; D63.1 Anemia in chronic kidney disease; I65.23 Occlusion and stenosis of bilateral carotid arteries; E83.39 Other disorders of phosphorus metabolism; W05.0XXA Fall from non-moving wheelchair, initial encounter; Y92.013 Bedroom of single-family (private) house as the place of occurrence of the external cause; Z99.2 Dependence on renal dialysis; Z99.3 Dependence on wheelchair; Z86.718 Personal history of other venous thrombosis and embolism; Z79.01 Long term (current) use of anticoagulants; Z79.4 Long term (current) use of insulin; Z79.899 Other long term (current) drug therapy

== ENCOUNTER → 2017-07-27 | Outpatient (REF) ==
[2017-07-27 10:37] LABS: HEMOGLOBIN 11.2 g/dl (12.0-15.5); MEAN CORPUSCULAR HEMOGLOBIN 32.6 pg (27.0-33.0); MEAN CORPUSCULAR HGB CONC 33.9 g/dl (32.0-36.5); MEAN CORPUSCULAR VOLUME 95.9 fl (80.0-96.0); PLATELET COUNT, AUTOMATED 232 10^3/uL (150-450); RED BLOOD COUNT 3.44 10^6/uL (4.00-5.40); RED CELL DISTRIBUTION WIDTH 13.3 % (11.5-14.5); WHITE BLOOD COUNT 5.1 10^3/uL (4.0-10.0)
[2017-07-27 11:00] LABS: ANION GAP 10 MEQ/L (8-16); BLOOD UREA NITROGEN 52 MG/DL (7-18); CALCIUM LEVEL 8.4 MG/DL (8.8-10.2); CARBON DIOXIDE LEVEL 29 MEQ/L (21-32); CHLORIDE LEVEL 102 MEQ/L (98-107); CREATININE FOR GFR 6.33 MG/DL (0.55-1.30); GLOMERULAR FILTRATION RATE 7.1 (>45); GLUCOSE, FASTING 109 MG/DL (70-100); POTASSIUM SERUM 3.7 MEQ/L (3.5-5.1); SODIUM LEVEL 141 MEQ/L (136-145)
[2017-07-27 12:29] LABS: ESTIMATED AVERAGE GLUCOSE 166 MG/DL (60-110); HEMOGLOBIN A1c 7.4 %
== END ==
DX: E03.9 Hypothyroidism, unspecified (principal); E11.9 Type 2 diabetes mellitus without complications; N18.6 End stage renal disease

== ENCOUNTER → 2017-08-02 | Outpatient (REF) ==
[2017-08-02 19:28] LABS: HEMATOCRIT 36.6 % (36.0-47.0); HEMOGLOBIN 12.1 g/dl (12.0-15.5); MEAN CORPUSCULAR HEMOGLOBIN 31.2 pg (27.0-33.0); MEAN CORPUSCULAR HGB CONC 33.1 g/dl (32.0-36.5); MEAN CORPUSCULAR VOLUME 94.3 fl (80.0-96.0); PLATELET COUNT, AUTOMATED 190 10^3/uL (150-450); RED BLOOD COUNT 3.88 10^6/uL (4.00-5.40); RED CELL DISTRIBUTION WIDTH 13.7 % (11.5-14.5); WHITE BLOOD COUNT 14.8 10^3/uL (4.0-10.0)
== END ==
DX: R50.9 Fever, unspecified (principal)

== ENCOUNTER 2017-08-03 10:39 | Emergency (ER) | payer MEDICARE, MEDICAID, BC ==
[2017-08-03] MEDS: NORCO, ANEXSIA 5/325MG TABLET (HYDROcodone/ACETAMINOPHEN) PO ×2 (11:45)
[2017-08-03] MEDS: ONDANSETRON 4MG/2ML VIAL (J2405) IV ×6 (11:45→19:41)
[2017-08-03 11:46] LABS: BASO % 0.1 % (0.0-1.0); HEMATOCRIT 38.4 % (36.0-47.0); HEMOGLOBIN 12.9 g/dl (12.0-15.5); IMMATURE GRANULOCYTE % 0.5 % (0-3.0); LYMPH # 0.4 10^3/uL (1.5-4.5); LYMPH % 2.3 % (24.0-44.0); MEAN CORPUSCULAR HEMOGLOBIN 30.9 pg (27.0-33.0); MEAN CORPUSCULAR HGB CONC 33.6 g/dl (32.0-36.5); MEAN CORPUSCULAR VOLUME 92.1 fl (80.0-96.0); MONO # 0.3 10^3/uL (0.0-0.8); NEUTROPHILS # 14.7 10^3/uL (1.8-7.7); NEUTROPHILS % 95.1 % (36.0-66.0); PLATELET COUNT, AUTOMATED 222 10^3/uL (150-450); RED BLOOD COUNT 4.17 10^6/uL (4.00-5.40); RED CELL DISTRIBUTION WIDTH 13.4 % (11.5-14.5); WHITE BLOOD COUNT 15.5 10^3/uL (4.0-10.0)
[2017-08-03 12:00] LABS: ALBUMIN 3.3 GM/DL (3.2-5.2); ALBUMIN/GLOBULIN RATIO 0.66 (1.00-1.93); ALKALINE PHOSPHATASE 137 U/L (45-117); ALT/SGPT 18 U/L (12-78); ANION GAP 11 MEQ/L (8-16); AST/SGOT 12 U/L (7-37); BILIRUBIN,DIRECT 0.2 MG/DL (0.0-0.2); BILIRUBIN,TOTAL 0.5 MG/DL (0.2-1.0); BLOOD UREA NITROGEN 56 MG/DL (7-18); CALCIUM LEVEL 9.3 MG/DL (8.8-10.2); CARBON DIOXIDE LEVEL 26 MEQ/L (21-32); CHLORIDE LEVEL 97 MEQ/L (98-107); CREATININE FOR GFR 6.08 MG/DL (0.55-1.30); GLOMERULAR FILTRATION RATE 7.5 (>45); GLUCOSE, FASTING 215 MG/DL (70-100); LIPASE 85 U/L (73-393); POTASSIUM SERUM 3.2 MEQ/L (3.5-5.1); SODIUM LEVEL 134 MEQ/L (136-145); TOTAL PROTEIN 8.3 GM/DL (6.4-8.2)
[2017-08-03 12:42] LABS: ERYTHROCYTE SEDIMENTATION RATE 70 mm/hr (0-30)
[2017-08-03] MEDS ORDERED: BISACODYL 10 MG SUPP PR ×2 (14:00)
[2017-08-03] MEDS ORDERED: GLUCOSE 4 GM CHEW TABLET PO ×2 (14:00)
[2017-08-03] MEDS ORDERED: NORCO, ANEXSIA 5/325MG TABLET (HYDROcodone/ACETAMINOPHEN) PO ×2 (14:00)
[2017-08-03] MEDS ORDERED: DEXTROSE 50% 50 ML SYRINGE IV ×2 (14:00)
[2017-08-03] MEDS ORDERED: GLUCAGON FOR INJ 1 MG VIAL (J1610) SC ×2 (14:00)
[2017-08-03] MEDS ORDERED: VANCOMYCIN INTERMITTENT/PULSE DOSING BY CLINICAL PHARMACIST PER DOSING PROTOCOL XX ×2 (14:30)
[2017-08-03] MEDS ORDERED: hydrALAZINE INJ 20 MG/ML VIAL IV ×2 (14:45)
[2017-08-03] MEDS ORDERED: ONDANSETRON 4MG/2ML VIAL (J2405) IV ×2 (14:45)
[2017-08-03] MEDS ORDERED: ACETAMINOPHEN TAB 650MG DOSE (2X325MG) PO ×2 (14:45)
[2017-08-03 15:24] LABS: INR 3.04; PROTHROMBIN TIME 32.8 SECONDS (12.4-14.5)
[2017-08-03 15:41] LABS: T UPTAKE 41 % (30-39)
[2017-08-03 15:42] LABS: FREE THYROXINE INDEX 5.1 % (1.3-4.8); THYROXINE (T4) 12.4 UG/DL (4.5-12.0)
[2017-08-03 15:50] LABS: THYROID STIMULATING HORMONE 0.749 uIU/ML (0.358-3.740)
[2017-08-03] MEDS ORDERED: VANCOMYCIN HCL 1,000 MG, VIAL MATE ADAPTER 1 EACH in D5W 250 ML IV ×2 (16:00)
[2017-08-03] MEDS ORDERED: ISOVUE-370 76% 100ML VIAL (Q9967) As Ordered ×2 (16:55)
[2017-08-03] MEDS ORDERED: WARFARIN SOD 3 MG TAB PO ×2 (17:00)
[2017-08-03] MEDS: PIPERACILLIN/TAZOBACTAM SOD 2.25 GM in D5W MINI-BAG PLUS 50 ML IV (17:00)
[2017-08-03] MEDS ORDERED: NYSTATIN 500,000 U/5 ML SUSP UDC SS ×2 (17:00)
[2017-08-03] MEDS ORDERED: HumaLOG INSULIN (NovoLOG) PER UNIT SC ×4 (17:30→21:00)
[2017-08-03] MEDS ORDERED: LIDOCAINE W/EPINEPHRINE 1% 20ML VIAL As Ordered ×2 (18:00)
[2017-08-03] MEDS ORDERED: (RENVELA) SEVELAMER **CARBONate** 800 MG TAB PO ×2 (18:00)
[2017-08-03] MEDS ORDERED: POLYSPORIN OPHTH OINT 3.5 GM As Ordered ×2 (18:13)
[2017-08-03] MEDS ORDERED: METAL LOCK LOOP XX ×2 (18:53)
[2017-08-03] MEDS: ACETAMINOPHEN TAB 650MG DOSE (2X325MG) PO ×2 (19:41)
[2017-08-03] MEDS ORDERED: SENOKOT S TAB PO ×2 (21:00)
[2017-08-03] MEDS ORDERED: SIMVASTATIN 20 MG TAB PO ×2 (21:00)
[2017-08-03] MEDS ORDERED: BETAMETHASONE VAL 0.1% CR 15 GM TOP ×2 (21:00)
[2017-08-03] MEDS ORDERED: GABAPENTIN 300 MG CAP PO ×2 (21:00)
[2017-08-03] MEDS ORDERED: LEVEMIR (INSULIN DETEMIR) 1 UNITS/0.01ML SC ×2 (21:00)
[2017-08-03] MEDS ORDERED: cloNIDine 0.2 MG TAB PO ×2 (21:00)
[2017-08-04] MEDS ORDERED: LEVOTHYROXINE 150MCG TABLET (0.15MG) PO ×2 (06:00)
[2017-08-04] MEDS ORDERED: MIRALAX *UNIT DOSE* 17GM PACKET PO ×2 (09:00)
[2017-08-04] MEDS ORDERED: DOCUSATE SODIUM 100 MG CAP PO ×2 (09:00)
[2017-08-08] MEDS ORDERED: WARFARIN SOD 4 MG TAB PO ×2 (17:00)
== END 2017-08-03 19:52 | disposition short-term general hospital (02) ==
LOC: M ED 10:39
DX: H53.19 Other subjective visual disturbances (principal); H05.012 Cellulitis of left orbit; R50.9 Fever, unspecified; L89.620 Pressure ulcer of left heel, unstageable; L97.529 Non-pressure chronic ulcer of other part of left foot with unspecified severity; E10.621 Type 1 diabetes mellitus with foot ulcer; E10.40 Type 1 diabetes mellitus with diabetic neuropathy, unspecified; N18.6 End stage renal disease; Z99.2 Dependence on renal dialysis; I16.0 Hypertensive urgency; D72.829 Elevated white blood cell count, unspecified; R11.2 Nausea with vomiting, unspecified; I13.2 Hypertensive heart and chronic kidney disease with heart failure and with stage 5 chronic kidney disease, or end stage renal disease; I50.31 Acute diastolic (congestive) heart failure; E78.5 Hyperlipidemia, unspecified; E66.01 Morbid (severe) obesity due to excess calories; M54.9 Dorsalgia, unspecified; E03.9 Hypothyroidism, unspecified; D64.9 Anemia, unspecified; H54.8 Legal blindness, as defined in USA; Z79.899 Other long term (current) drug therapy; Z79.01 Long term (current) use of anticoagulants; Z91.040 Latex allergy status; Z86.718 Personal history of other venous thrombosis and embolism; E10.618 Type 1 diabetes mellitus with other diabetic arthropathy; R60.0 Localized edema; I25.10 Atherosclerotic heart disease of native coronary artery without angina pectoris
CPT/HCPCS: J2405

== ENCOUNTER → 2017-08-03 | Outpatient (REF) ==
[2017-08-03 10:11] LABS: AMORPHOUS SEDIMENT SMALL (NEGATIVE); APPEARANCE, URINE HAZY (CLEAR); BACTERIA, URINE AUTO 1+ (NEGATIVE); BILIRUBIN, URINE AUTO NEGATIVE (NEGATIVE); BLOOD, URINE BLOOD 1+ (NEGATIVE); COLOR, URINE YELLOW (YELLOW); GLUCOSE, URINE (UA) AUTO NEGATIVE (NEGATIVE); KETONE, URINE AUTO NEGATIVE (NEGATIVE); LEUKOCYTE ESTERASE, URINE AUTO TRACE (NEGATIVE); MUCUS, URINE SMALL (NEGATIVE); NITRITE, URINE AUTO NEGATIVE (NEGATIVE); PROTEIN, URINE AUTO 2+ mg/dL (NEGATIVE); RBC, URINE AUTO 13 /HPF (0-3); SPECIFIC GRAVITY URINE AUTO 1.017 (1.002-1.035); SQUAMOUS EPITHELIAL CELL UR AU 2 /HPF (0-6); UROBILINOGEN, URINE AUTO 0.2 mg/dL (0.0-2.0); WBC, URINE AUTO 15 /HPF (0-3)
== END ==
DX: R50.9 Fever, unspecified (principal)

== ENCOUNTER 2017-09-23 11:02 | Outpatient (REF) ==
[2017-09-24 10:24] LABS: HEMATOCRIT 30.7 % (36.0-47.0); HEMOGLOBIN 9.8 g/dl (12.0-15.5); MEAN CORPUSCULAR HEMOGLOBIN 29.5 pg (27.0-33.0); MEAN CORPUSCULAR HGB CONC 31.9 g/dl (32.0-36.5); MEAN CORPUSCULAR VOLUME 92.5 fl (80.0-96.0); PLATELET COUNT, AUTOMATED 269 10^3/uL (150-450); RED BLOOD COUNT 3.32 10^6/uL (4.00-5.40); RED CELL DISTRIBUTION WIDTH 15.7 % (11.5-14.5); WHITE BLOOD COUNT 6.5 10^3/uL (4.0-10.0)
[2017-09-24 10:47] LABS: ANION GAP 11 MEQ/L (8-16); BLOOD UREA NITROGEN 60 MG/DL (7-18); CALCIUM LEVEL 8.6 MG/DL (8.8-10.2); CARBON DIOXIDE LEVEL 28 MEQ/L (21-32); CHLORIDE LEVEL 98 MEQ/L (98-107); CREATININE FOR GFR 7.52 MG/DL (0.55-1.30); GLOMERULAR FILTRATION RATE 5.8 (>45); GLUCOSE, FASTING 180 MG/DL (70-100); POTASSIUM SERUM 3.5 MEQ/L (3.5-5.1); SODIUM LEVEL 137 MEQ/L (136-145)
== END 2017-09-24 ==
DX: R19.7 Diarrhea, unspecified (principal)

== ENCOUNTER 2017-10-08 01:40 | Emergency (ER) | payer MEDICARE, MEDICAID ==
[2017-10-08 02:49] LABS: BASO % 0.2 % (0.0-1.0); EOS % 0.2 % (0.0-3.0); HEMATOCRIT 32.9 % (36.0-47.0); HEMOGLOBIN 10.1 g/dl (12.0-15.5); IMMATURE GRANULOCYTE % 0.2 % (0-3.0); LYMPH # 0.9 10^3/uL (1.5-4.5); LYMPH % 9.7 % (24.0-44.0); MEAN CORPUSCULAR HEMOGLOBIN 28.4 pg (27.0-33.0); MEAN CORPUSCULAR HGB CONC 30.7 g/dl (32.0-36.5); MEAN CORPUSCULAR VOLUME 92.4 fl (80.0-96.0); MONO # 0.8 10^3/uL (0.0-0.8); MONO % 8.6 % (0.0-5.0); NEUTROPHILS # 7.3 10^3/uL (1.8-7.7); NEUTROPHILS % 81.1 % (36.0-66.0); PLATELET COUNT, AUTOMATED 281 10^3/uL (150-450); RED BLOOD COUNT 3.56 10^6/uL (4.00-5.40)
[2017-10-08 03:01] LABS: INR 2.62; PROTHROMBIN TIME 28.6 SECONDS (12.1-14.4)
[2017-10-08 03:03] LABS: PARTIAL THROMBOPLASTIN TIME 78.5 SECONDS (25.4-37.6)
[2017-10-08 03:23] LABS: ALBUMIN 2.1 GM/DL (3.2-5.2); ALBUMIN/GLOBULIN RATIO 0.41 (1.00-1.93); ALKALINE PHOSPHATASE 129 U/L (45-117); ALT/SGPT 9 U/L (12-78); ANION GAP 8 MEQ/L (8-16); AST/SGOT 10 U/L (7-37); BILIRUBIN,DIRECT 0.1 MG/DL (0.0-0.2); BILIRUBIN,TOTAL 0.3 MG/DL (0.2-1.0); BLOOD UREA NITROGEN 25 MG/DL (7-18); CALCIUM LEVEL 8.8 MG/DL (8.8-10.2); CARBON DIOXIDE LEVEL 30 MEQ/L (21-32); CHLORIDE LEVEL 102 MEQ/L (98-107); CREATININE FOR GFR 3.62 MG/DL (0.55-1.30); GLOMERULAR FILTRATION RATE 13.6 (>45); GLUCOSE, FASTING 118 MG/DL (70-100); POTASSIUM SERUM 4.3 MEQ/L (3.5-5.1); SODIUM LEVEL 140 MEQ/L (136-145); TOTAL PROTEIN 7.2 GM/DL (6.4-8.2)
[2017-10-08] MEDS: cefTRIAXone SOD 2 GM VIAL (J0696) IM (04:44)
== END 2017-10-08 06:26 | disposition home or self-care (01) ==
LOC: M ED 01:40
DX: L89.622 Pressure ulcer of left heel, stage 2 (principal); L08.9 Local infection of the skin and subcutaneous tissue, unspecified; E11.621 Type 2 diabetes mellitus with foot ulcer; I12.9 Hypertensive chronic kidney disease with stage 1 through stage 4 chronic kidney disease, or unspecified chronic kidney disease; E03.9 Hypothyroidism, unspecified; N18.9 Chronic kidney disease, unspecified; E11.22 Type 2 diabetes mellitus with diabetic chronic kidney disease; Z91.040 Latex allergy status; Z79.899 Other long term (current) drug therapy; Z79.01 Long term (current) use of anticoagulants; Z79.4 Long term (current) use of insulin
CPT/HCPCS: J0696

== ENCOUNTER 2017-10-08 14:15 | Outpatient (REF) ==
[2017-10-12 12:06] LABS: HEMATOCRIT 33.5 % (36.0-47.0); HEMOGLOBIN 10.4 g/dl (12.0-15.5); MEAN CORPUSCULAR VOLUME 90.3 fl (80.0-96.0); PLATELET COUNT, AUTOMATED 370 10^3/uL (150-450); RED BLOOD COUNT 3.71 10^6/uL (4.00-5.40); RED CELL DISTRIBUTION WIDTH 15.9 % (11.5-14.5)
[2017-10-12 12:35] LABS: ANION GAP 11 MEQ/L (8-16); BLOOD UREA NITROGEN 66 MG/DL (7-18); CALCIUM LEVEL 8.6 MG/DL (8.8-10.2); CARBON DIOXIDE LEVEL 27 MEQ/L (21-32); CHLORIDE LEVEL 97 MEQ/L (98-107); CREATININE FOR GFR 6.43 MG/DL (0.55-1.30); GLUCOSE, FASTING 161 MG/DL (70-100); POTASSIUM SERUM 4.8 MEQ/L (3.5-5.1); SODIUM LEVEL 135 MEQ/L (136-145)
== END 2017-10-12 ==
DX: L03.116 Cellulitis of left lower limb (principal)

== ENCOUNTER → 2017-10-11 | Outpatient (REF) | LOC: M RAD 08:00 | DX: Z00.00 Encounter for general adult medical examination without abnormal findings (principal) ==

== ENCOUNTER → 2017-10-15 | Outpatient (REF) ==
[~2017-10-15] MED LIST changes: +ISOVUE-300 61% 50ML VIAL (Q9967) As Ordered; -LIDOCAINE 1% MDV 20ML VIAL As Ordered; +MIDAZOLAM INJ 2 MG/2 ML VIAL (J2250) As Ordered; +fentaNYL 100 MCG/2 ML INJECTION (J3010) As Ordered
== END | disposition home or self-care (01) ==
LOC: M IRPRO 09:03
DX: T82.858A Stenosis of other vascular prosthetic devices, implants and grafts, initial encounter (principal); E11.22 Type 2 diabetes mellitus with diabetic chronic kidney disease; I12.0 Hypertensive chronic kidney disease with stage 5 chronic kidney disease or end stage renal disease; N18.6 End stage renal disease; I25.10 Atherosclerotic heart disease of native coronary artery without angina pectoris; Z99.2 Dependence on renal dialysis
CPT/HCPCS: 36902

== ENCOUNTER → 2017-10-18 | Outpatient (CLI) | payer MEDICARE, MEDICAID | LOC: M RAD 06:32 | DX: E27.8 Other specified disorders of adrenal gland (principal) | CPT/HCPCS: 74181 ==

== ENCOUNTER → 2017-10-20 | Outpatient (REF) ==
[2017-10-20 10:58] LABS: INR 2.47; PROTHROMBIN TIME 27.3 SECONDS (12.1-14.4)
== END ==
DX: I48.91 Unspecified atrial fibrillation (principal)

== ENCOUNTER → 2017-10-27 | Outpatient (REF) ==
[2017-10-27 11:28] LABS: INR 1.61; PROTHROMBIN TIME 19.4 SECONDS (12.1-14.4)
== END ==
DX: Z79.01 Long term (current) use of anticoagulants (principal)

== ENCOUNTER → 2017-10-29 | Outpatient (REF) ==
[2017-10-29 10:24] LABS: INR 2.25; PROTHROMBIN TIME 25.3 SECONDS (12.1-14.4)
== END ==
DX: D64.9 Anemia, unspecified (principal)

== ENCOUNTER → 2017-11-05 | Outpatient (REF) | payer MEDICARE, MEDICAID ==
[2017-11-05 18:13] LABS: HEMATOCRIT 29.9 % (36.0-47.0); MEAN CORPUSCULAR HEMOGLOBIN 27.4 pg (27.0-33.0); MEAN CORPUSCULAR HGB CONC 30.1 g/dl (32.0-36.5); MEAN CORPUSCULAR VOLUME 90.9 fl (80.0-96.0); PLATELET COUNT, AUTOMATED 337 10^3/uL (150-450); RED BLOOD COUNT 3.29 10^6/uL (4.00-5.40); RED CELL DISTRIBUTION WIDTH 16.7 % (11.5-14.5); WHITE BLOOD COUNT 7.6 10^3/uL (4.0-10.0)
== END ==
DX: L97.929 Non-pressure chronic ulcer of unspecified part of left lower leg with unspecified severity (principal)
CPT/HCPCS: 85027

== ENCOUNTER → 2017-11-09 | Outpatient (REF) ==
[2017-11-09 09:54] LABS: HEMATOCRIT 28.2 % (36.0-47.0); HEMOGLOBIN 8.5 g/dl (12.0-15.5); MEAN CORPUSCULAR HEMOGLOBIN 26.7 pg (27.0-33.0); MEAN CORPUSCULAR HGB CONC 30.1 g/dl (32.0-36.5); MEAN CORPUSCULAR VOLUME 88.7 fl (80.0-96.0); PLATELET COUNT, AUTOMATED 299 10^3/uL (150-450); RED BLOOD COUNT 3.18 10^6/uL (4.00-5.40); RED CELL DISTRIBUTION WIDTH 16.3 % (11.5-14.5); WHITE BLOOD COUNT 7.1 10^3/uL (4.0-10.0)
[2017-11-09 10:16] LABS: C REACTIVE PROTEIN QUANTITATIV 8.17 MG/DL (0.00-0.30)
[2017-11-09 10:28] LABS: ERYTHROCYTE SEDIMENTATION RATE 83 mm/hr (0-30)
[2017-11-10 09:43] LABS: IRON (FE) 20 UG/DL (50-170); PERCENT SATURATION 30.8 % (13.2-45.0); TOTAL IRON BINDING CAPACITY 65 UG/DL (250-450)
[2017-11-10 10:20] LABS: VITAMIN B12 LEVEL 281 PG/ML (247-911)
[2017-11-10 10:21] LABS: FOLATE 5.7 NG/ML (>5.4)
== END ==
DX: L97.929 Non-pressure chronic ulcer of unspecified part of left lower leg with unspecified severity (principal)

== ENCOUNTER → 2017-11-11 | Outpatient (REF) ==
[2017-11-11 13:18] LABS: HEMATOCRIT 32.1 % (36.0-47.0); HEMOGLOBIN 9.5 g/dl (12.0-15.5); MEAN CORPUSCULAR HEMOGLOBIN 26.6 pg (27.0-33.0); MEAN CORPUSCULAR HGB CONC 29.6 g/dl (32.0-36.5); MEAN CORPUSCULAR VOLUME 89.9 fl (80.0-96.0); PLATELET COUNT, AUTOMATED 369 10^3/uL (150-450); RED BLOOD COUNT 3.57 10^6/uL (4.00-5.40); RED CELL DISTRIBUTION WIDTH 16.3 % (11.5-14.5); WHITE BLOOD COUNT 7.6 10^3/uL (4.0-10.0)
== END ==
DX: L03.90 Cellulitis, unspecified (principal)

== ENCOUNTER → 2017-11-16 | Outpatient (REF) | payer MEDICARE, MEDICAID ==
[2017-11-16 10:12] LABS: HEMATOCRIT 29.3 % (36.0-47.0); HEMOGLOBIN 8.8 g/dl (12.0-15.5); MEAN CORPUSCULAR HEMOGLOBIN 27.4 pg (27.0-33.0); MEAN CORPUSCULAR VOLUME 91.3 fl (80.0-96.0); PLATELET COUNT, AUTOMATED 318 10^3/uL (150-450); RED BLOOD COUNT 3.21 10^6/uL (4.00-5.40); RED CELL DISTRIBUTION WIDTH 16.6 % (11.5-14.5); WHITE BLOOD COUNT 8.1 10^3/uL (4.0-10.0)
[2017-11-16 10:39] LABS: ANION GAP 7 MEQ/L (8-16); BLOOD UREA NITROGEN 58 MG/DL (7-18); CALCIUM LEVEL 8.5 MG/DL (8.8-10.2); CARBON DIOXIDE LEVEL 33 MEQ/L (21-32); CHLORIDE LEVEL 98 MEQ/L (98-107); CREATININE FOR GFR 5.56 MG/DL (0.55-1.30); GLOMERULAR FILTRATION RATE 8.3 (>45); GLUCOSE, FASTING 110 MG/DL (70-100); SODIUM LEVEL 138 MEQ/L (136-145)
[2017-11-16 10:41] LABS: POTASSIUM SERUM 5.3 MEQ/L (3.5-5.1)
== END ==
DX: H44.119 Panuveitis, unspecified eye (principal); Z79.01 Long term (current) use of anticoagulants
CPT/HCPCS: 80048

== ENCOUNTER → 2017-11-16 | Outpatient (REF) | payer MEDICARE, MEDICAID | DX: Z79.899 Other long term (current) drug therapy (principal); Z86.718 Personal history of other venous thrombosis and embolism ==

== ENCOUNTER → 2017-11-22 | Outpatient (CLI) | payer MEDICARE, MEDICAID ==
[~2017-11-22] MED LIST changes: +HEPARIN 1,000 UNITS/ML 10ML VIAL (FOR RADIOLOGY& DIALYSIS ONLY) As Ordered
== END | disposition home or self-care (01) ==
LOC: M IRPRO 06:27
DX: I70.249 Atherosclerosis of native arteries of left leg with ulceration of unspecified site (principal); I70.239 Atherosclerosis of native arteries of right leg with ulceration of unspecified site; L97.929 Non-pressure chronic ulcer of unspecified part of left lower leg with unspecified severity; L97.919 Non-pressure chronic ulcer of unspecified part of right lower leg with unspecified severity; I87.2 Venous insufficiency (chronic) (peripheral); I87.303 Chronic venous hypertension (idiopathic) without complications of bilateral lower extremity; I13.2 Hypertensive heart and chronic kidney disease with heart failure and with stage 5 chronic kidney disease, or end stage renal disease; I50.9 Heart failure, unspecified; N18.6 End stage renal disease; E11.22 Type 2 diabetes mellitus with diabetic chronic kidney disease; I65.29 Occlusion and stenosis of unspecified carotid artery
CPT/HCPCS: 37224

== ENCOUNTER → 2017-11-22 | Outpatient (REF) | payer MEDICARE, MEDICAID | DX: L03.116 Cellulitis of left lower limb (principal) ==

== ENCOUNTER → 2017-11-23 | Outpatient (REF) | payer MEDICARE, MEDICAID ==
[2017-11-23 09:52] LABS: HEMATOCRIT 27.6 % (36.0-47.0); HEMOGLOBIN 8.4 g/dl (12.0-15.5); MEAN CORPUSCULAR HEMOGLOBIN 26.6 pg (27.0-33.0); MEAN CORPUSCULAR HGB CONC 30.4 g/dl (32.0-36.5); MEAN CORPUSCULAR VOLUME 87.3 fl (80.0-96.0); PLATELET COUNT, AUTOMATED 307 10^3/uL (150-450); RED BLOOD COUNT 3.16 10^6/uL (4.00-5.40); RED CELL DISTRIBUTION WIDTH 17.2 % (11.5-14.5); WHITE BLOOD COUNT 10.2 10^3/uL (4.0-10.0)
== END ==
DX: L03.116 Cellulitis of left lower limb (principal)
CPT/HCPCS: 85027

== ENCOUNTER → 2017-11-24 | Outpatient (REF) | payer MEDICARE, MEDICAID ==
[2017-11-24 13:49] LABS: HEMATOCRIT 25.9 % (36.0-47.0); HEMOGLOBIN 7.9 g/dl (12.0-15.5); MEAN CORPUSCULAR HEMOGLOBIN 27.3 pg (27.0-33.0); MEAN CORPUSCULAR HGB CONC 30.5 g/dl (32.0-36.5); MEAN CORPUSCULAR VOLUME 89.6 fl (80.0-96.0); PLATELET COUNT, AUTOMATED 315 10^3/uL (150-450); RED BLOOD COUNT 2.89 10^6/uL (4.00-5.40); RED CELL DISTRIBUTION WIDTH 17.2 % (11.5-14.5); WHITE BLOOD COUNT 8.5 10^3/uL (4.0-10.0)
[2017-11-24 14:08] LABS: INR 4.92; PROTHROMBIN TIME 47.1 SECONDS (12.1-14.4)
== END ==
DX: Z79.01 Long term (current) use of anticoagulants (principal); D64.9 Anemia, unspecified
CPT/HCPCS: 85610

== ENCOUNTER 2017-11-25 10:21 | Outpatient (CLI) | payer MEDICARE, MEDICAID ==
[2017-11-25] MEDS: ACETAMINOPHEN TAB 650MG DOSE (2X325MG) PO (11:16)
[2017-11-25] MEDS: diphenhydrAMINE 25 MG CAP PO (11:16)
== END 2017-11-25 19:05 | disposition home or self-care (01) ==
LOC: M OPCLI4PV 10:21 → M MSPAV 10:26 → M OPCLI4PV 19:05
DX: D64.9 Anemia, unspecified (principal)
CPT/HCPCS: 36430

== ENCOUNTER → 2017-11-25 | Outpatient (REF) | payer MEDICARE, MEDICAID ==
[2017-11-25 09:54] LABS: HEMATOCRIT 26.6 % (36.0-47.0); HEMOGLOBIN 8.2 g/dl (12.0-15.5); MEAN CORPUSCULAR HEMOGLOBIN 27.9 pg (27.0-33.0); MEAN CORPUSCULAR HGB CONC 30.8 g/dl (32.0-36.5); MEAN CORPUSCULAR VOLUME 90.5 fl (80.0-96.0); PLATELET COUNT, AUTOMATED 326 10^3/uL (150-450); RED BLOOD COUNT 2.94 10^6/uL (4.00-5.40); RED CELL DISTRIBUTION WIDTH 17.1 % (11.5-14.5); WHITE BLOOD COUNT 7.3 10^3/uL (4.0-10.0)
[2017-11-25 11:33] LABS: IMMEDIATE SPIN CROSSMATCH 1 2
== END ==
DX: D64.9 Anemia, unspecified (principal)

== ENCOUNTER → 2017-11-26 | Outpatient (REF) | payer MEDICARE, MEDICAID ==
[2017-11-26 10:44] LABS: HEMATOCRIT 34.9 % (36.0-47.0); MEAN CORPUSCULAR HEMOGLOBIN 28.1 pg (27.0-33.0); MEAN CORPUSCULAR HGB CONC 31.2 g/dl (32.0-36.5); MEAN CORPUSCULAR VOLUME 89.9 fl (80.0-96.0); PLATELET COUNT, AUTOMATED 394 10^3/uL (150-450); RED BLOOD COUNT 3.88 10^6/uL (4.00-5.40); RED CELL DISTRIBUTION WIDTH 16.6 % (11.5-14.5); WHITE BLOOD COUNT 7.1 10^3/uL (4.0-10.0)
[2017-11-26 10:48] LABS: HEMOGLOBIN 10.9 g/dl (12.0-15.5)
== END ==
DX: D64.9 Anemia, unspecified (principal)
CPT/HCPCS: 85027

== ENCOUNTER → 2017-11-30 | Outpatient (REF) | payer MEDICARE, MEDICAID ==
[2017-11-30 11:14] LABS: HEMATOCRIT 30.7 % (36.0-47.0); HEMOGLOBIN 9.4 g/dl (12.0-15.5); MEAN CORPUSCULAR HGB CONC 30.6 g/dl (32.0-36.5); MEAN CORPUSCULAR VOLUME 91.4 fl (80.0-96.0); PLATELET COUNT, AUTOMATED 356 10^3/uL (150-450); RED BLOOD COUNT 3.36 10^6/uL (4.00-5.40); RED CELL DISTRIBUTION WIDTH 17.2 % (11.5-14.5); WHITE BLOOD COUNT 8.3 10^3/uL (4.0-10.0)
== END ==
DX: D64.9 Anemia, unspecified (principal)
CPT/HCPCS: 85027

== ENCOUNTER → 2017-12-02 | Outpatient (REF) ==
[2017-12-02 11:46] LABS: INR 3.94; PROTHROMBIN TIME 39.5 SECONDS (12.1-14.4)
== END ==
DX: D64.9 Anemia, unspecified (principal)

== ENCOUNTER → 2017-12-03 | Outpatient (REF) ==
[2017-12-03 11:09] LABS: INR 3.13; PROTHROMBIN TIME 32.9 SECONDS (12.1-14.4)
== END ==
DX: D64.9 Anemia, unspecified (principal)

== ENCOUNTER → 2017-12-03 | Outpatient (CLI) | payer MEDICARE, MEDICAID | LOC: M RAD 10:55 | DX: R60.0 Localized edema (principal); M79.651 Pain in right thigh | CPT/HCPCS: 76881 ==

== ENCOUNTER → 2017-12-08 | Outpatient (REF) | payer MEDICARE, MEDICAID ==
[2017-12-08 10:27] LABS: INR 1.49; PROTHROMBIN TIME 18.3 SECONDS (12.1-14.4)
== END ==
DX: D64.9 Anemia, unspecified (principal); Z79.01 Long term (current) use of anticoagulants
CPT/HCPCS: 85610

== ENCOUNTER 2017-12-09 18:07 | Inpatient (IN) | payer MEDICARE, MEDICAID ==
[2017-12-09] MEDS: NS 500 ML IV (16:30)
[2017-12-09 16:37] LABS: HEMATOCRIT 32.8 % (36.0-47.0); HEMOGLOBIN 10.2 g/dl (12.0-15.5); MEAN CORPUSCULAR HEMOGLOBIN 28.4 pg (27.0-33.0); MEAN CORPUSCULAR HGB CONC 31.1 g/dl (32.0-36.5); MEAN CORPUSCULAR VOLUME 91.4 fl (80.0-96.0); PLATELET COUNT, AUTOMATED 334 10^3/uL (150-450); RED BLOOD COUNT 3.59 10^6/uL (4.00-5.40); RED CELL DISTRIBUTION WIDTH 19.4 % (11.5-14.5); WHITE BLOOD COUNT 9.7 10^3/uL (4.0-10.0)
[2017-12-09 16:42] LABS: PROTHROMBIN TIME 19.3 SECONDS (12.1-14.4)
[2017-12-09] MEDS: PERCOCET 5MG/325MG TAB PO ×2 (16:42→23:04)
[2017-12-09 16:58] LABS: ANION GAP 7 MEQ/L (8-16); BLOOD UREA NITROGEN 45 MG/DL (7-18); CARBON DIOXIDE LEVEL 30 MEQ/L (21-32); CHLORIDE LEVEL 97 MEQ/L (98-107); CPK CREATINE PHOSPHOKINASE 53 U/L (26-192); CREATININE FOR GFR 2.68 MG/DL (0.55-1.30); GLOMERULAR FILTRATION RATE 19.2 (>45); GLUCOSE, FASTING 148 MG/DL (70-100); MB/CK RELATIVE INDEX 2.83 (< OR =4); POTASSIUM SERUM 4.4 MEQ/L (3.5-5.1); SODIUM LEVEL 134 MEQ/L (136-145); TROPONIN I < 0.02 NG/ML (< 0.10)
[2017-12-09 18:10] LABS: BASO % 0.2 % (0.0-1.0); EOS # 0.1 10^3/uL (0.0-0.50); EOS % 0.6 % (0.0-3.0); IMMATURE GRANULOCYTE % 0.7 % (0-3.0); LYMPH # 1.8 10^3/uL (1.5-4.5); LYMPH % 18.8 % (24.0-44.0); MONO # 0.8 10^3/uL (0.0-0.8); MONO % 7.8 % (0.0-5.0); NEUTROPHILS # 6.9 10^3/uL (1.8-7.7); NEUTROPHILS % 71.9 % (36.0-66.0)
[2017-12-09 18:25] LABS: LACTIC ACID SEPSIS PROTOCOL 1.9 MMOL/L (0.4-2.0)
[2017-12-09] MEDS: LevoFLOXacin IV 750 MG in APPROPRIATE DILUENT 1 EA IV (18:36)
[2017-12-09 19:01] LABS: ERYTHROCYTE SEDIMENTATION RATE 62 mm/hr (0-30)
[2017-12-09] MEDS ORDERED: ACETAMINOPHEN 325 MG TAB PO (20:00)
[2017-12-09] MEDS ORDERED: BISACODYL 10 MG SUPP PR (20:00)
[2017-12-09] MEDS ORDERED: GLUCOSE 4 GM CHEW TABLET PO (20:15)
[2017-12-09] MEDS ORDERED: DEXTROSE 50% 50 ML SYRINGE IV (20:15)
[2017-12-09] MEDS ORDERED: GLUCAGON FOR INJ 1 MG VIAL (J1610) SC (20:15)
[2017-12-09] MEDS: MIRTAZAPINE 7.5MG PER 1/2 TABLET PO (22:54)
[2017-12-09] MEDS: SENOKOT S TAB PO (22:54)
[2017-12-09 22:55] LABS: BEDSIDE GLUCOSE 87 MG/DL (80-115)
[2017-12-09] MEDS: HumaLOG INSULIN (NovoLOG) PER UNIT SC (22:55)
[2017-12-09] MEDS: AMITRIPTYLINE 25 MG TAB PO (22:59)
[2017-12-09] MEDS: PREGABALIN 25 MG CAP (LYRICA) PO (22:59)
[2017-12-09] MEDS: FAMOTIDINE 20 MG TAB PO ×2 (23:03→23:12)
[2017-12-09] MEDS: ERYTHROMYCIN OPHTH OINT OS (23:03)
[2017-12-09] MEDS: SIMVASTATIN 20 MG TAB PO (23:03)
[2017-12-10] MEDS: VANCOMYCIN HCL 1,000 MG, VIAL MATE ADAPTER 1 EACH in D5W 250 ML IV ×3 (00:01→12:08)
[2017-12-10] MEDS: WARFARIN SOD 2 MG TAB PO (00:01)
[2017-12-10 02:28] LABS: BEDSIDE GLUCOSE 92 MG/DL (80-115)
[2017-12-10] MEDS ORDERED: MEROPENEM INJ 500 MG in APPROPRIATE DILUENT 1 EA IV (04:00)
[2017-12-10] MEDS: LEVOTHYROXINE 150MCG TABLET (0.15MG) PO (07:25)
[2017-12-10] MEDS: HumaLOG INSULIN (NovoLOG) PER UNIT SC ×4 (08:00→21:00)
[2017-12-10] MEDS: (RENVELA) SEVELAMER **CARBONate** 800 MG TAB PO ×3 (08:00→18:03)
[2017-12-10 08:05] LABS: HEMATOCRIT 28.4 % (36.0-47.0); MEAN CORPUSCULAR HEMOGLOBIN 28.3 pg (27.0-33.0); MEAN CORPUSCULAR HGB CONC 31.7 g/dl (32.0-36.5); MEAN CORPUSCULAR VOLUME 89.3 fl (80.0-96.0); PLATELET COUNT, AUTOMATED 286 10^3/uL (150-450); RED BLOOD COUNT 3.18 10^6/uL (4.00-5.40); RED CELL DISTRIBUTION WIDTH 19.5 % (11.5-14.5); WHITE BLOOD COUNT 10.5 10^3/uL (4.0-10.0)
[2017-12-10] MEDS: CALCIUM CARBONATE 500 MG CHEW U/D PO ×3 (08:08→18:04)
[2017-12-10 08:45] LABS: ESTIMATED AVERAGE GLUCOSE 88 MG/DL (60-110); HEMOGLOBIN A1c 4.7 %
[2017-12-10] MEDS: ASPIRIN 81 MG ENTERIC TAB PO (09:00)
[2017-12-10] MEDS: SENOKOT S TAB PO ×3 (09:00→22:13)
[2017-12-10] MEDS ORDERED: LEVEMIR (INSULIN DETEMIR) 1 UNITS/0.01ML SC (09:00)
[2017-12-10] MEDS: LEVEMIR (INSULIN DETEMIR) 1 UNITS/0.01ML SC (09:00)
[2017-12-10 09:19] LABS: ALBUMIN 1.2 GM/DL (3.2-5.2); ALBUMIN/GLOBULIN RATIO 0.33 (1.00-1.93); ALKALINE PHOSPHATASE 154 U/L (45-117); ALT/SGPT 9 U/L (12-78); ANION GAP 9 MEQ/L (8-16); AST/SGOT 10 U/L (7-37); BILIRUBIN,TOTAL 0.3 MG/DL (0.2-1.0); BLOOD UREA NITROGEN 55 MG/DL (7-18); CALCIUM LEVEL 7.8 MG/DL (8.8-10.2); CARBON DIOXIDE LEVEL 25 MEQ/L (21-32); CHLORIDE LEVEL 99 MEQ/L (98-107); CPK CREATINE PHOSPHOKINASE 58 U/L (26-192); CREATININE FOR GFR 3.28 MG/DL (0.55-1.30); GLOMERULAR FILTRATION RATE 15.2 (>45); GLUCOSE, FASTING 106 MG/DL (70-100); POTASSIUM SERUM 4.3 MEQ/L (3.5-5.1); SODIUM LEVEL 133 MEQ/L (136-145); TOTAL PROTEIN 4.8 GM/DL (6.4-8.2); TROPONIN I < 0.02 NG/ML (< 0.10); VANCOMYCIN RANDOM 17.6 UG/ML
[2017-12-10] MEDS ORDERED: VANCOMYCIN HCL 750 MG, VIAL MATE ADAPTER 1 EACH in D5W 250 ML IV (10:00)
[2017-12-10] MEDS: PREGABALIN 25 MG CAP (LYRICA) PO ×2 (10:32→22:13)
[2017-12-10] MEDS: VITAMIN D 1,000 INTERNATIONAL UNITS TABLET PO (10:33)
[2017-12-10] MEDS: ERYTHROMYCIN OPHTH OINT OS ×4 (10:33→22:14)
[2017-12-10] MEDS: MEROPENEM INJ 500 MG in APPROPRIATE DILUENT 1 EA IV (10:43)
[2017-12-10 14:23] LABS: BEDSIDE GLUCOSE 110 MG/DL (80-115)
[2017-12-10] MEDS: PERCOCET 5MG/325MG TAB PO (14:43)
[2017-12-10] MEDS: NS 500 ML IV (14:44)
[2017-12-10] MEDS: **VANCO AFTER HD** MISC XX (16:26)
[2017-12-10 17:38] LABS: BEDSIDE GLUCOSE 100 MG/DL (80-115)
[2017-12-10] MEDS: WARFARIN SOD 1 MG TAB PO (18:04)
[2017-12-10] MEDS: SANTYL OINT 30GM TOP (18:04)
[2017-12-10] MEDS: DIAPER RELIEF PASTE (DESITIN) 60GM TOP (18:13)
[2017-12-10 20:48] LABS: BEDSIDE GLUCOSE 132 MG/DL (80-115)
[2017-12-10] MEDS: MIRTAZAPINE 7.5MG PER 1/2 TABLET PO (22:13)
[2017-12-10] MEDS: FAMOTIDINE 20 MG TAB PO (22:13)
[2017-12-10] MEDS: AMITRIPTYLINE 25 MG TAB PO (22:14)
[2017-12-10] MEDS: SIMVASTATIN 20 MG TAB PO (22:14)
[2017-12-11] MEDS: PERCOCET 5MG/325MG TAB PO ×4 (00:17→22:57)
[2017-12-11] MEDS: VITAMIN D 1,000 INTERNATIONAL UNITS TABLET PO (06:31)
[2017-12-11] MEDS: CALCIUM CARBONATE 500 MG CHEW U/D PO ×3 (06:31→21:34)
[2017-12-11] MEDS: LEVOTHYROXINE 150MCG TABLET (0.15MG) PO (06:31)
[2017-12-11] MEDS: PREGABALIN 25 MG CAP (LYRICA) PO ×2 (06:31→21:34)
[2017-12-11] MEDS: MEROPENEM INJ 500 MG in APPROPRIATE DILUENT 1 EA IV (06:32)
[2017-12-11] MEDS: ASPIRIN 81 MG ENTERIC TAB PO (06:32)
[2017-12-11] MEDS: ERYTHROMYCIN OPHTH OINT OS ×4 (06:33→21:36)
[2017-12-11] MEDS: SANTYL OINT 30GM TOP (06:33)
[2017-12-11] MEDS: DIAPER RELIEF PASTE (DESITIN) 60GM TOP (06:45)
[2017-12-11 07:48] LABS: BEDSIDE GLUCOSE 119 MG/DL (80-115)
[2017-12-11] MEDS ORDERED: DARBEPOETIN 100 MCG/0.5 ML *DIALYSIS* SYRINGE (J0882) IV (08:00)
[2017-12-11] MEDS: (RENVELA) SEVELAMER **CARBONate** 800 MG TAB PO ×3 (08:40→18:00)
[2017-12-11] MEDS: HumaLOG INSULIN (NovoLOG) PER UNIT SC ×4 (08:41→21:35)
[2017-12-11] MEDS: HEPARIN 1,000 UNITS/ML 10ML VIAL (FOR RADIOLOGY& DIALYSIS ONLY) IV (11:00)
[2017-12-11 13:37] LABS: HEMATOCRIT 33.7 % (36.0-47.0); HEMOGLOBIN 10.4 g/dl (12.0-15.5); MEAN CORPUSCULAR HEMOGLOBIN 28.3 pg (27.0-33.0); MEAN CORPUSCULAR HGB CONC 30.9 g/dl (32.0-36.5); MEAN CORPUSCULAR VOLUME 91.8 fl (80.0-96.0); PLATELET COUNT, AUTOMATED 330 10^3/uL (150-450); RED BLOOD COUNT 3.67 10^6/uL (4.00-5.40); RED CELL DISTRIBUTION WIDTH 19.4 % (11.5-14.5); WHITE BLOOD COUNT 10.8 10^3/uL (4.0-10.0)
[2017-12-11 13:48] LABS: INR 2.29; PROTHROMBIN TIME 25.7 SECONDS (12.1-14.4)
[2017-12-11 14:00] LABS: ALBUMIN 1.4 GM/DL (3.2-5.2); ALBUMIN/GLOBULIN RATIO 0.36 (1.00-1.93); ALKALINE PHOSPHATASE 195 U/L (45-117); ALT/SGPT 12 U/L (12-78); ANION GAP 9 MEQ/L (8-16); AST/SGOT 14 U/L (7-37); BILIRUBIN,TOTAL 0.3 MG/DL (0.2-1.0); BLOOD UREA NITROGEN 16 MG/DL (7-18); CALCIUM LEVEL 7.5 MG/DL (8.8-10.2); CARBON DIOXIDE LEVEL 27 MEQ/L (21-32); CHLORIDE LEVEL 102 MEQ/L (98-107); CREATININE FOR GFR 1.22 MG/DL (0.55-1.30); GLOMERULAR FILTRATION RATE 47.7 (>45); GLUCOSE, FASTING 115 MG/DL (70-100); MAGNESIUM LEVEL 1.9 MG/DL (1.8-2.4); POTASSIUM SERUM 3.1 MEQ/L (3.5-5.1); SODIUM LEVEL 138 MEQ/L (136-145); TOTAL PROTEIN 5.3 GM/DL (6.4-8.2); VANCOMYCIN RANDOM 9.7 UG/ML
[2017-12-11] MEDS: INFLUENZA QUADRIVALENT PF VACCINE 0.5ML SYRINGE (90686) IM (14:11)
[2017-12-11] MEDS: **VANCO AFTER HD** MISC XX (15:34)
[2017-12-11] MEDS: VANCOMYCIN HCL 1,000 MG, VIAL MATE ADAPTER 1 EACH in D5W 250 ML IV (15:34)
[2017-12-11 16:56] LABS: BEDSIDE GLUCOSE 176 MG/DL (80-115)
[2017-12-11 20:16] LABS: BEDSIDE GLUCOSE 196 MG/DL (80-115)
[2017-12-11] MEDS: FAMOTIDINE 20 MG TAB PO (21:34)
[2017-12-11] MEDS: WARFARIN SOD 1 MG TAB PO (21:34)
[2017-12-11] MEDS: SENOKOT S TAB PO (21:34)
[2017-12-11] MEDS: AMITRIPTYLINE 25 MG TAB PO (21:34)
[2017-12-11] MEDS: MIRTAZAPINE 7.5MG PER 1/2 TABLET PO (21:34)
[2017-12-11] MEDS: SIMVASTATIN 20 MG TAB PO (21:35)
[2017-12-12] MEDS: LEVOTHYROXINE 150MCG TABLET (0.15MG) PO (06:01)
[2017-12-12 06:16] LABS: HEMATOCRIT 28.8 % (36.0-47.0); HEMOGLOBIN 8.8 g/dl (12.0-15.5); MEAN CORPUSCULAR HEMOGLOBIN 28.7 pg (27.0-33.0); MEAN CORPUSCULAR HGB CONC 30.6 g/dl (32.0-36.5); MEAN CORPUSCULAR VOLUME 93.8 fl (80.0-96.0); PLATELET COUNT, AUTOMATED 262 10^3/uL (150-450); RED BLOOD COUNT 3.07 10^6/uL (4.00-5.40); RED CELL DISTRIBUTION WIDTH 19.7 % (11.5-14.5); WHITE BLOOD COUNT 9.2 10^3/uL (4.0-10.0)
[2017-12-12 06:29] LABS: INR 2.57; PROTHROMBIN TIME 28.1 SECONDS (12.1-14.4)
[2017-12-12 06:47] LABS: ALBUMIN 1.2 GM/DL (3.2-5.2); ALBUMIN/GLOBULIN RATIO 0.38 (1.00-1.93); ALKALINE PHOSPHATASE 157 U/L (45-117); ALT/SGPT 8 U/L (12-78); ANION GAP 8 MEQ/L (8-16); AST/SGOT 11 U/L (7-37); BILIRUBIN,TOTAL 0.2 MG/DL (0.2-1.0); BLOOD UREA NITROGEN 32 MG/DL (7-18); CALCIUM LEVEL 7.3 MG/DL (8.8-10.2); CARBON DIOXIDE LEVEL 29 MEQ/L (21-32); CHLORIDE LEVEL 101 MEQ/L (98-107); CREATININE FOR GFR 3.03 MG/DL (0.55-1.30); GLOMERULAR FILTRATION RATE 16.7 (>45); GLUCOSE, FASTING 132 MG/DL (70-100); POTASSIUM SERUM 3.9 MEQ/L (3.5-5.1); SODIUM LEVEL 138 MEQ/L (136-145); TOTAL PROTEIN 4.4 GM/DL (6.4-8.2)
[2017-12-12 06:50] LABS: ALBUMIN 1.2 GM/DL (3.2-5.2); ANION GAP 9 MEQ/L (8-16); BLOOD UREA NITROGEN 33 MG/DL (7-18); CALCIUM LEVEL 7.2 MG/DL (8.8-10.2); CARBON DIOXIDE LEVEL 28 MEQ/L (21-32); CHLORIDE LEVEL 101 MEQ/L (98-107); CREATININE FOR GFR 2.97 MG/DL (0.55-1.30); FERRITIN 1854 NG/ML (8-252); GLOMERULAR FILTRATION RATE 17.1 (>45); GLUCOSE, FASTING 131 MG/DL (70-100); IRON (FE) 35 UG/DL (50-170); PHOSPHORUS LEVEL 2.3 MG/DL (2.5-4.9); POTASSIUM SERUM 3.9 MEQ/L (3.5-5.1); SODIUM LEVEL 138 MEQ/L (136-145)
[2017-12-12] MEDS: MEROPENEM INJ 500 MG in APPROPRIATE DILUENT 1 EA IV (07:52)
[2017-12-12] MEDS: PERCOCET 5MG/325MG TAB PO ×4 (07:52→21:32)
[2017-12-12] MEDS: (RENVELA) SEVELAMER **CARBONate** 800 MG TAB PO ×3 (07:53→17:27)
[2017-12-12] MEDS: HumaLOG INSULIN (NovoLOG) PER UNIT SC ×4 (07:53→21:30)
[2017-12-12] MEDS: PREGABALIN 25 MG CAP (LYRICA) PO ×2 (07:53→21:29)
[2017-12-12] MEDS: VITAMIN D 1,000 INTERNATIONAL UNITS TABLET PO (07:53)
[2017-12-12] MEDS: ASPIRIN 81 MG ENTERIC TAB PO (07:53)
[2017-12-12] MEDS: SENOKOT S TAB PO ×2 (07:53→21:30)
[2017-12-12] MEDS: CALCIUM CARBONATE 500 MG CHEW U/D PO ×3 (07:53→17:27)
[2017-12-12] MEDS: SANTYL OINT 30GM TOP (07:54)
[2017-12-12] MEDS: DIAPER RELIEF PASTE (DESITIN) 60GM TOP (07:54)
[2017-12-12] MEDS: ERYTHROMYCIN OPHTH OINT OS ×4 (07:55→21:31)
[2017-12-12] MEDS: **VANCO AFTER HD** MISC XX (12:33)
[2017-12-12 12:57] LABS: BEDSIDE GLUCOSE 203 MG/DL (80-115)
[2017-12-12 16:40] LABS: BEDSIDE GLUCOSE 146 MG/DL (80-115)
[2017-12-12] MEDS: WARFARIN SOD 1 MG TAB PO (17:28)
[2017-12-12 20:40] LABS: BEDSIDE GLUCOSE 152 MG/DL (80-115)
[2017-12-12] MEDS: AMITRIPTYLINE 25 MG TAB PO (21:29)
[2017-12-12] MEDS: MIRTAZAPINE 7.5MG PER 1/2 TABLET PO (21:30)
[2017-12-12] MEDS: FAMOTIDINE 20 MG TAB PO (21:30)
[2017-12-12] MEDS: SIMVASTATIN 20 MG TAB PO (21:30)
[2017-12-13] MEDS: LEVOTHYROXINE 150MCG TABLET (0.15MG) PO (06:13)
[2017-12-13] MEDS: PERCOCET 5MG/325MG TAB PO ×3 (07:24→22:01)
[2017-12-13 07:33] LABS: BEDSIDE GLUCOSE 126 MG/DL (80-115)
[2017-12-13] MEDS: MEROPENEM INJ 500 MG in APPROPRIATE DILUENT 1 EA IV (07:36)
[2017-12-13] MEDS: HumaLOG INSULIN (NovoLOG) PER UNIT SC ×4 (07:36→21:59)
[2017-12-13] MEDS: VITAMIN D 1,000 INTERNATIONAL UNITS TABLET PO (07:36)
[2017-12-13] MEDS: (RENVELA) SEVELAMER **CARBONate** 800 MG TAB PO ×3 (07:36→16:58)
[2017-12-13] MEDS: CALCIUM CARBONATE 500 MG CHEW U/D PO ×3 (07:36→16:58)
[2017-12-13] MEDS: PREGABALIN 25 MG CAP (LYRICA) PO ×2 (07:36→21:59)
[2017-12-13] MEDS: SENOKOT S TAB PO ×2 (07:36→21:59)
[2017-12-13] MEDS: ASPIRIN 81 MG ENTERIC TAB PO (07:36)
[2017-12-13] MEDS: SANTYL OINT 30GM TOP (07:37)
[2017-12-13] MEDS: ERYTHROMYCIN OPHTH OINT OS ×4 (07:37→21:59)
[2017-12-13] MEDS: DIAPER RELIEF PASTE (DESITIN) 60GM TOP (07:37)
[2017-12-13 11:10] LABS: HEMATOCRIT 28.9 % (36.0-47.0); HEMOGLOBIN 8.8 g/dl (12.0-15.5); MEAN CORPUSCULAR HEMOGLOBIN 28.2 pg (27.0-33.0); MEAN CORPUSCULAR HGB CONC 30.4 g/dl (32.0-36.5); MEAN CORPUSCULAR VOLUME 92.6 fl (80.0-96.0); PLATELET COUNT, AUTOMATED 287 10^3/uL (150-450); RED BLOOD COUNT 3.12 10^6/uL (4.00-5.40); RED CELL DISTRIBUTION WIDTH 19.5 % (11.5-14.5); WHITE BLOOD COUNT 10.4 10^3/uL (4.0-10.0)
[2017-12-13 11:24] LABS: INR 3.14
[2017-12-13 11:28] LABS: BEDSIDE GLUCOSE 140 MG/DL (80-115)
[2017-12-13 11:36] LABS: ALBUMIN 1.2 GM/DL (3.2-5.2); ALBUMIN/GLOBULIN RATIO 0.34 (1.00-1.93); ALKALINE PHOSPHATASE 165 U/L (45-117); ALT/SGPT 7 U/L (12-78); ANION GAP 9 MEQ/L (8-16); AST/SGOT 9 U/L (7-37); BILIRUBIN,TOTAL 0.3 MG/DL (0.2-1.0); BLOOD UREA NITROGEN 47 MG/DL (7-18); CALCIUM LEVEL 7.5 MG/DL (8.8-10.2); CARBON DIOXIDE LEVEL 28 MEQ/L (21-32); CHLORIDE LEVEL 99 MEQ/L (98-107); CREATININE FOR GFR 4.32 MG/DL (0.55-1.30); GLOMERULAR FILTRATION RATE 11.1 (>45); GLUCOSE, FASTING 127 MG/DL (70-100); MAGNESIUM LEVEL 2.1 MG/DL (1.8-2.4); POTASSIUM SERUM 4.2 MEQ/L (3.5-5.1); SODIUM LEVEL 136 MEQ/L (136-145); TOTAL PROTEIN 4.7 GM/DL (6.4-8.2)
[2017-12-13] MEDS: **VANCO AFTER HD** MISC XX (16:15)
[2017-12-13 16:36] LABS: BEDSIDE GLUCOSE 153 MG/DL (80-115)
[2017-12-13] MEDS: ONDANSETRON 4MG/2ML VIAL (J2405) IV (20:51)
[2017-12-13] MEDS: SIMVASTATIN 20 MG TAB PO (21:59)
[2017-12-13] MEDS: FAMOTIDINE 20 MG TAB PO (21:59)
[2017-12-13] MEDS: MIRTAZAPINE 7.5MG PER 1/2 TABLET PO (21:59)
[2017-12-13] MEDS: AMITRIPTYLINE 25 MG TAB PO (21:59)
[2017-12-13 22:26] LABS: BEDSIDE GLUCOSE 153 MG/DL (80-115)
[2017-12-14] MEDS: PERCOCET 5MG/325MG TAB PO ×3 (03:31→23:01)
[2017-12-14 06:17] LABS: HEMATOCRIT 27.6 % (36.0-47.0); HEMOGLOBIN 8.5 g/dl (12.0-15.5); MEAN CORPUSCULAR HEMOGLOBIN 29.1 pg (27.0-33.0); MEAN CORPUSCULAR HGB CONC 30.8 g/dl (32.0-36.5); MEAN CORPUSCULAR VOLUME 94.5 fl (80.0-96.0); PLATELET COUNT, AUTOMATED 259 10^3/uL (150-450); RED BLOOD COUNT 2.92 10^6/uL (4.00-5.40); RED CELL DISTRIBUTION WIDTH 19.4 % (11.5-14.5)
[2017-12-14] MEDS: LEVOTHYROXINE 150MCG TABLET (0.15MG) PO (06:24)
[2017-12-14] MEDS: CALCIUM CARBONATE 500 MG CHEW U/D PO ×3 (06:24→17:52)
[2017-12-14] MEDS: MEROPENEM INJ 500 MG in APPROPRIATE DILUENT 1 EA IV (06:25)
[2017-12-14] MEDS: SENOKOT S TAB PO ×3 (06:26→20:03)
[2017-12-14] MEDS: ASPIRIN 81 MG ENTERIC TAB PO (06:26)
[2017-12-14] MEDS: PREGABALIN 25 MG CAP (LYRICA) PO ×2 (06:26→20:02)
[2017-12-14] MEDS: VITAMIN D 1,000 INTERNATIONAL UNITS TABLET PO (06:27)
[2017-12-14] MEDS: ERYTHROMYCIN OPHTH OINT OS ×4 (06:27→20:02)
[2017-12-14] MEDS: DIAPER RELIEF PASTE (DESITIN) 60GM TOP (06:27)
[2017-12-14 06:32] LABS: INR 3.12; PROTHROMBIN TIME 32.8 SECONDS (12.1-14.4)
[2017-12-14 06:58] LABS: ALBUMIN 1.1 GM/DL (3.2-5.2); ALBUMIN/GLOBULIN RATIO 0.33 (1.00-1.93); ALKALINE PHOSPHATASE 157 U/L (45-117); ALT/SGPT 6 U/L (12-78); ANION GAP 11 MEQ/L (8-16); AST/SGOT 8 U/L (7-37); BILIRUBIN,TOTAL 0.2 MG/DL (0.2-1.0); BLOOD UREA NITROGEN 53 MG/DL (7-18); C REACTIVE PROTEIN QUANTITATIV 9.94 MG/DL (0.00-0.30); CALCIUM LEVEL 7.3 MG/DL (8.8-10.2); CARBON DIOXIDE LEVEL 25 MEQ/L (21-32); CHLORIDE LEVEL 99 MEQ/L (98-107); CREATININE FOR GFR 4.91 MG/DL (0.55-1.30); GLOMERULAR FILTRATION RATE 9.6 (>45); GLUCOSE, FASTING 109 MG/DL (70-100); MAGNESIUM LEVEL 2.2 MG/DL (1.8-2.4); POTASSIUM SERUM 4.4 MEQ/L (3.5-5.1); SODIUM LEVEL 135 MEQ/L (136-145); TOTAL PROTEIN 4.4 GM/DL (6.4-8.2); VANCOMYCIN RANDOM 18.1 UG/ML
[2017-12-14] MEDS: (RENVELA) SEVELAMER **CARBONate** 800 MG TAB PO ×3 (08:08→17:54)
[2017-12-14] MEDS: SANTYL OINT 30GM TOP (08:09)
[2017-12-14] MEDS: HumaLOG INSULIN (NovoLOG) PER UNIT SC ×4 (08:09→21:00)
[2017-12-14] MEDS: HEPARIN 1,000 UNITS/ML 10ML VIAL (FOR RADIOLOGY& DIALYSIS ONLY) IV (11:45)
[2017-12-14] MEDS ORDERED: LIDOCAINE 1% MDV 20ML VIAL As Ordered (11:51)
[2017-12-14 13:03] LABS: BEDSIDE GLUCOSE 129 MG/DL (80-115)
[2017-12-14] MEDS: WARFARIN SOD 1 MG TAB PO ×2 (17:00→17:52)
[2017-12-14 17:41] LABS: BEDSIDE GLUCOSE 151 MG/DL (80-115)
[2017-12-14] MEDS: VANCOMYCIN HCL 1,000 MG, VIAL MATE ADAPTER 1 EACH in D5W 250 ML IV (17:52)
[2017-12-14] MEDS: SODIUM CHLORIDE 0.9% INJ 10 ML SYR IV (17:55)
[2017-12-14] MEDS: **VANCO AFTER HD** MISC XX (17:55)
[2017-12-14] MEDS: SIMVASTATIN 20 MG TAB PO (20:02)
[2017-12-14] MEDS: AMITRIPTYLINE 25 MG TAB PO (20:02)
[2017-12-14] MEDS: MIRTAZAPINE 7.5MG PER 1/2 TABLET PO (20:02)
[2017-12-14] MEDS: FAMOTIDINE 20 MG TAB PO (20:02)
[2017-12-14 21:14] LABS: BEDSIDE GLUCOSE 181 MG/DL (80-115)
[2017-12-15] MEDS: SODIUM CHLORIDE 0.9% INJ 10 ML SYR IV ×2 (05:10→18:34)
[2017-12-15 05:25] LABS: HEMATOCRIT 26.5 % (36.0-47.0); MEAN CORPUSCULAR HEMOGLOBIN 28.4 pg (27.0-33.0); MEAN CORPUSCULAR HGB CONC 30.2 g/dl (32.0-36.5); PLATELET COUNT, AUTOMATED 270 10^3/uL (150-450); RED BLOOD COUNT 2.82 10^6/uL (4.00-5.40)
[2017-12-15 05:33] LABS: INR 3.13; PROTHROMBIN TIME 32.9 SECONDS (12.1-14.4)
[2017-12-15] MEDS: LEVOTHYROXINE 150MCG TABLET (0.15MG) PO (05:37)
[2017-12-15 05:52] LABS: ALBUMIN 1.1 GM/DL (3.2-5.2); ALBUMIN/GLOBULIN RATIO 0.33 (1.00-1.93); ALKALINE PHOSPHATASE 152 U/L (45-117); ALT/SGPT < 6 U/L (12-78); ANION GAP 10 MEQ/L (8-16); AST/SGOT 7 U/L (7-37); BILIRUBIN,TOTAL 0.2 MG/DL (0.2-1.0); BLOOD UREA NITROGEN 28 MG/DL (7-18); C REACTIVE PROTEIN QUANTITATIV 9.73 MG/DL (0.00-0.30); CALCIUM LEVEL 7.5 MG/DL (8.8-10.2); CARBON DIOXIDE LEVEL 28 MEQ/L (21-32); CHLORIDE LEVEL 102 MEQ/L (98-107); CREATININE FOR GFR 3.44 MG/DL (0.55-1.30); GLOMERULAR FILTRATION RATE 14.4 (>45); GLUCOSE, FASTING 96 MG/DL (70-100); MAGNESIUM LEVEL 2.1 MG/DL (1.8-2.4); POTASSIUM SERUM 4.3 MEQ/L (3.5-5.1); SODIUM LEVEL 140 MEQ/L (136-145); TOTAL PROTEIN 4.4 GM/DL (6.4-8.2)
[2017-12-15] MEDS: HumaLOG INSULIN (NovoLOG) PER UNIT SC ×4 (07:30→21:00)
[2017-12-15] MEDS: PREGABALIN 25 MG CAP (LYRICA) PO ×2 (08:19→21:35)
[2017-12-15] MEDS: VITAMIN D 1,000 INTERNATIONAL UNITS TABLET PO (08:19)
[2017-12-15] MEDS: CALCIUM CARBONATE 500 MG CHEW U/D PO ×3 (08:19→18:33)
[2017-12-15] MEDS: PERCOCET 5MG/325MG TAB PO ×2 (08:19→15:01)
[2017-12-15] MEDS: ASPIRIN 81 MG ENTERIC TAB PO (08:19)
[2017-12-15] MEDS: (RENVELA) SEVELAMER **CARBONate** 800 MG TAB PO ×3 (08:19→18:33)
[2017-12-15] MEDS: SENOKOT S TAB PO ×2 (08:19→21:35)
[2017-12-15] MEDS: ERYTHROMYCIN OPHTH OINT OS ×4 (08:20→21:40)
[2017-12-15] MEDS: SANTYL OINT 30GM TOP (08:20)
[2017-12-15] MEDS: DIAPER RELIEF PASTE (DESITIN) 60GM TOP (08:20)
[2017-12-15] MEDS: MEROPENEM INJ 500 MG in APPROPRIATE DILUENT 1 EA IV (08:21)
[2017-12-15 11:45] LABS: BEDSIDE GLUCOSE 127 MG/DL (80-115)
[2017-12-15] MEDS: **VANCO AFTER HD** MISC XX (15:00)
[2017-12-15 16:34] LABS: BEDSIDE GLUCOSE 122 MG/DL (80-115)
[2017-12-15] MEDS: MIRTAZAPINE 7.5MG PER 1/2 TABLET PO (21:35)
[2017-12-15] MEDS: FAMOTIDINE 20 MG TAB PO (21:35)
[2017-12-15] MEDS: AMITRIPTYLINE 25 MG TAB PO (21:35)
[2017-12-15] MEDS: SIMVASTATIN 20 MG TAB PO (21:35)
[2017-12-15 21:40] LABS: BEDSIDE GLUCOSE 134 MG/DL (80-115)
[2017-12-16] MEDS: SODIUM CHLORIDE 0.9% INJ 10 ML SYR IV ×3 (05:13→20:11)
[2017-12-16 05:21] LABS: HEMATOCRIT 27.8 % (36.0-47.0); HEMOGLOBIN 8.3 g/dl (12.0-15.5); MEAN CORPUSCULAR HEMOGLOBIN 28.6 pg (27.0-33.0); MEAN CORPUSCULAR HGB CONC 29.9 g/dl (32.0-36.5); MEAN CORPUSCULAR VOLUME 95.9 fl (80.0-96.0); PLATELET COUNT, AUTOMATED 267 10^3/uL (150-450); RED CELL DISTRIBUTION WIDTH 20.2 % (11.5-14.5); WHITE BLOOD COUNT 7.7 10^3/uL (4.0-10.0)
[2017-12-16 05:33] LABS: INR 2.81; PROTHROMBIN TIME 30.2 SECONDS (12.1-14.4)
[2017-12-16] MEDS: LEVOTHYROXINE 150MCG TABLET (0.15MG) PO (05:40)
[2017-12-16 05:47] LABS: ALBUMIN 1.2 GM/DL (3.2-5.2); ALBUMIN/GLOBULIN RATIO 0.36 (1.00-1.93); ALKALINE PHOSPHATASE 146 U/L (45-117); ALT/SGPT < 6 U/L (12-78); ANION GAP 9 MEQ/L (8-16); AST/SGOT 7 U/L (7-37); BILIRUBIN,TOTAL 0.2 MG/DL (0.2-1.0); BLOOD UREA NITROGEN 38 MG/DL (7-18); C REACTIVE PROTEIN QUANTITATIV 8.53 MG/DL (0.00-0.30); CALCIUM LEVEL 7.5 MG/DL (8.8-10.2); CARBON DIOXIDE LEVEL 27 MEQ/L (21-32); CHLORIDE LEVEL 102 MEQ/L (98-107); CREATININE FOR GFR 4.17 MG/DL (0.55-1.30); GLOMERULAR FILTRATION RATE 11.5 (>45); GLUCOSE, FASTING 104 MG/DL (70-100); MAGNESIUM LEVEL 2.1 MG/DL (1.8-2.4); POTASSIUM SERUM 4.5 MEQ/L (3.5-5.1); SODIUM LEVEL 138 MEQ/L (136-145); TOTAL PROTEIN 4.5 GM/DL (6.4-8.2)
[2017-12-16] MEDS: (RENVELA) SEVELAMER **CARBONate** 800 MG TAB PO ×3 (05:49→18:14)
[2017-12-16] MEDS: PREGABALIN 25 MG CAP (LYRICA) PO ×2 (05:49→21:33)
[2017-12-16] MEDS: CALCIUM CARBONATE 500 MG CHEW U/D PO ×3 (05:49→18:14)
[2017-12-16] MEDS: SENOKOT S TAB PO ×2 (05:50→21:33)
[2017-12-16] MEDS: VITAMIN D 1,000 INTERNATIONAL UNITS TABLET PO (05:50)
[2017-12-16] MEDS: MEROPENEM INJ 500 MG in APPROPRIATE DILUENT 1 EA IV (05:50)
[2017-12-16] MEDS: ASPIRIN 81 MG ENTERIC TAB PO (05:50)
[2017-12-16] MEDS: ERYTHROMYCIN OPHTH OINT OS ×4 (05:50→21:33)
[2017-12-16] MEDS: DIAPER RELIEF PASTE (DESITIN) 60GM TOP (05:51)
[2017-12-16] MEDS: SANTYL OINT 30GM TOP (05:51)
[2017-12-16] MEDS: PERCOCET 5MG/325MG TAB PO ×3 (07:58→18:15)
[2017-12-16] MEDS: HumaLOG INSULIN (NovoLOG) PER UNIT SC ×4 (07:59→21:00)
[2017-12-16 12:11] LABS: BEDSIDE GLUCOSE 130 MG/DL (80-115)
[2017-12-16 12:54] LABS: VANCOMYCIN RANDOM 14.6 UG/ML
[2017-12-16 14:55] LABS: IMMEDIATE SPIN CROSSMATCH 1 1
[2017-12-16] MEDS: VANCOMYCIN HCL 1,000 MG, VIAL MATE ADAPTER 1 EACH in D5W 250 ML IV (18:14)
[2017-12-16] MEDS: **VANCO AFTER HD** MISC XX (18:16)
[2017-12-16 18:27] LABS: BEDSIDE GLUCOSE 115 MG/DL (80-115)
[2017-12-16 20:23] LABS: BEDSIDE GLUCOSE 142 MG/DL (80-115)
[2017-12-16] MEDS: FAMOTIDINE 20 MG TAB PO (21:33)
[2017-12-16] MEDS: AMITRIPTYLINE 25 MG TAB PO (21:33)
[2017-12-16] MEDS: SIMVASTATIN 20 MG TAB PO (21:33)
[2017-12-16] MEDS: MIRTAZAPINE 7.5MG PER 1/2 TABLET PO (21:33)
[2017-12-17] MEDS: SODIUM CHLORIDE 0.9% INJ 10 ML SYR IV ×3 (05:13→23:10)
[2017-12-17 05:50] LABS: C REACTIVE PROTEIN QUANTITATIV 6.98 MG/DL (0.00-0.30)
[2017-12-17] MEDS: LEVOTHYROXINE 150MCG TABLET (0.15MG) PO (06:00)
[2017-12-17 07:16] LABS: BEDSIDE GLUCOSE 94 MG/DL (80-115)
[2017-12-17] MEDS: PERCOCET 5MG/325MG TAB PO ×4 (07:21→22:16)
[2017-12-17] MEDS: HumaLOG INSULIN (NovoLOG) PER UNIT SC ×4 (07:23→22:13)
[2017-12-17] MEDS: (RENVELA) SEVELAMER **CARBONate** 800 MG TAB PO ×3 (08:41→17:52)
[2017-12-17] MEDS: PREGABALIN 25 MG CAP (LYRICA) PO ×2 (08:41→22:16)
[2017-12-17] MEDS: MEROPENEM INJ 500 MG in APPROPRIATE DILUENT 1 EA IV (08:41)
[2017-12-17] MEDS: SENOKOT S TAB PO ×2 (08:42→22:13)
[2017-12-17] MEDS: ASPIRIN 81 MG ENTERIC TAB PO (08:42)
[2017-12-17] MEDS: CALCIUM CARBONATE 500 MG CHEW U/D PO ×3 (08:42→17:52)
[2017-12-17] MEDS: SANTYL OINT 30GM TOP (08:42)
[2017-12-17] MEDS: VITAMIN D 1,000 INTERNATIONAL UNITS TABLET PO (08:42)
[2017-12-17] MEDS: DIAPER RELIEF PASTE (DESITIN) 60GM TOP (08:43)
[2017-12-17] MEDS: ERYTHROMYCIN OPHTH OINT OS ×4 (08:43→22:13)
[2017-12-17 11:40] LABS: BEDSIDE GLUCOSE 147 MG/DL (80-115)
[2017-12-17] MEDS ORDERED: IRON SUCROSE 100MG 5ML VIAL (J1756 PER 1MG) IV (12:15)
[2017-12-17] MEDS: **VANCO AFTER HD** MISC XX (12:45)
[2017-12-17 16:58] LABS: BEDSIDE GLUCOSE 129 MG/DL (80-115)
[2017-12-17] MEDS: PIPERACILLIN/TAZOBACTAM SOD 2.25 GM in D5W MINI-BAG PLUS 50 ML IV ×2 (17:56→22:13)
[2017-12-17 21:08] LABS: BEDSIDE GLUCOSE 132 MG/DL (80-115)
[2017-12-17] MEDS: SIMVASTATIN 20 MG TAB PO (22:12)
[2017-12-17] MEDS: FAMOTIDINE 20 MG TAB PO (22:12)
[2017-12-17] MEDS: AMITRIPTYLINE 25 MG TAB PO (22:13)
[2017-12-17] MEDS: MIRTAZAPINE 7.5MG PER 1/2 TABLET PO (22:16)
[2017-12-18] MEDS: PIPERACILLIN/TAZOBACTAM SOD 2.25 GM in D5W MINI-BAG PLUS 50 ML IV ×4 (04:25→22:48)
[2017-12-18] MEDS: SODIUM CHLORIDE 0.9% INJ 10 ML SYR IV ×3 (05:15→23:29)
[2017-12-18 05:32] LABS: HEMATOCRIT 29.4 % (36.0-47.0); MEAN CORPUSCULAR HEMOGLOBIN 28.8 pg (27.0-33.0); MEAN CORPUSCULAR HGB CONC 30.6 g/dl (32.0-36.5); MEAN CORPUSCULAR VOLUME 93.9 fl (80.0-96.0); PLATELET COUNT, AUTOMATED 255 10^3/uL (150-450); RED BLOOD COUNT 3.13 10^6/uL (4.00-5.40); RED CELL DISTRIBUTION WIDTH 20.2 % (11.5-14.5); WHITE BLOOD COUNT 7.2 10^3/uL (4.0-10.0)
[2017-12-18 06:00] LABS: ALBUMIN 1.1 GM/DL (3.2-5.2); ALBUMIN/GLOBULIN RATIO 0.31 (1.00-1.93); ALKALINE PHOSPHATASE 134 U/L (45-117); ALT/SGPT < 6 U/L (12-78); ANION GAP 9 MEQ/L (8-16); AST/SGOT 10 U/L (7-37); BILIRUBIN,TOTAL 0.2 MG/DL (0.2-1.0); BLOOD UREA NITROGEN 32 MG/DL (7-18); C REACTIVE PROTEIN QUANTITATIV 5.06 MG/DL (0.00-0.30); CALCIUM LEVEL 7.4 MG/DL (8.8-10.2); CARBON DIOXIDE LEVEL 28 MEQ/L (21-32); CHLORIDE LEVEL 100 MEQ/L (98-107); CREATININE FOR GFR 4.05 MG/DL (0.55-1.30); GLOMERULAR FILTRATION RATE 11.9 (>45); GLUCOSE, FASTING 116 MG/DL (70-100); POTASSIUM SERUM 4.4 MEQ/L (3.5-5.1); SODIUM LEVEL 137 MEQ/L (136-145); TOTAL PROTEIN 4.6 GM/DL (6.4-8.2)
[2017-12-18] MEDS: VITAMIN D 1,000 INTERNATIONAL UNITS TABLET PO (06:22)
[2017-12-18] MEDS: CALCIUM CARBONATE 500 MG CHEW U/D PO ×3 (06:22→16:59)
[2017-12-18] MEDS: SENOKOT S TAB PO ×3 (06:22→21:31)
[2017-12-18] MEDS: ASPIRIN 81 MG ENTERIC TAB PO (06:22)
[2017-12-18] MEDS: LEVOTHYROXINE 150MCG TABLET (0.15MG) PO (06:22)
[2017-12-18] MEDS: PREGABALIN 25 MG CAP (LYRICA) PO ×2 (06:22→21:31)
[2017-12-18] MEDS: ERYTHROMYCIN OPHTH OINT OS ×4 (06:22→21:32)
[2017-12-18] MEDS: DIAPER RELIEF PASTE (DESITIN) 60GM TOP (06:23)
[2017-12-18] MEDS: SANTYL OINT 30GM TOP (06:23)
[2017-12-18] MEDS: HumaLOG INSULIN (NovoLOG) PER UNIT SC ×4 (07:30→21:44)
[2017-12-18] MEDS: (RENVELA) SEVELAMER **CARBONate** 800 MG TAB PO ×3 (07:32→17:00)
[2017-12-18] MEDS: HEPARIN 1,000 UNITS/ML 10ML VIAL (FOR RADIOLOGY& DIALYSIS ONLY) IV (11:00)
[2017-12-18 14:50] LABS: BEDSIDE GLUCOSE 106 MG/DL (80-115)
[2017-12-18] MEDS: **VANCO AFTER HD** MISC XX (15:13)
[2017-12-18] MEDS: ACETAMINOPHEN TAB 650MG DOSE (2X325MG) PO (15:29)
[2017-12-18] MEDS: WARFARIN SOD 1 MG TAB PO (16:59)
[2017-12-18 17:18] LABS: BEDSIDE GLUCOSE 138 MG/DL (80-115)
[2017-12-18] MEDS: PERCOCET 5MG/325MG TAB PO (18:36)
[2017-12-18 20:44] LABS: BEDSIDE GLUCOSE 126 MG/DL (80-115)
[2017-12-18] MEDS: MIRTAZAPINE 7.5MG PER 1/2 TABLET PO (21:31)
[2017-12-18] MEDS: FAMOTIDINE 20 MG TAB PO (21:31)
[2017-12-18] MEDS: AMITRIPTYLINE 25 MG TAB PO (21:32)
[2017-12-18] MEDS: SIMVASTATIN 20 MG TAB PO (21:32)
[2017-12-19] MEDS: PIPERACILLIN/TAZOBACTAM SOD 2.25 GM in D5W MINI-BAG PLUS 50 ML IV ×4 (04:47→23:28)
[2017-12-19] MEDS: LEVOTHYROXINE 150MCG TABLET (0.15MG) PO (05:31)
[2017-12-19] MEDS: SODIUM CHLORIDE 0.9% INJ 10 ML SYR IV ×3 (05:32→23:55)
[2017-12-19 05:54] LABS: INR 1.76; PROTHROMBIN TIME 20.8 SECONDS (12.1-14.4)
[2017-12-19 06:16] LABS: C REACTIVE PROTEIN QUANTITATIV 5.27 MG/DL (0.00-0.30)
[2017-12-19 07:01] LABS: BEDSIDE GLUCOSE 90 MG/DL (80-115)
[2017-12-19] MEDS: ENOXAPARIN 120 MG/0.8 ML SYR (J1650) SC (07:14)
[2017-12-19] MEDS: HumaLOG INSULIN (NovoLOG) PER UNIT SC ×4 (07:30→21:00)
[2017-12-19] MEDS: PREGABALIN 25 MG CAP (LYRICA) PO ×2 (07:48→20:02)
[2017-12-19] MEDS: (RENVELA) SEVELAMER **CARBONate** 800 MG TAB PO ×3 (07:48→17:33)
[2017-12-19] MEDS: SENOKOT S TAB PO ×2 (07:48→20:03)
[2017-12-19] MEDS: CALCIUM CARBONATE 500 MG CHEW U/D PO ×3 (07:48→17:33)
[2017-12-19] MEDS: ASPIRIN 81 MG ENTERIC TAB PO (07:49)
[2017-12-19] MEDS: ERYTHROMYCIN OPHTH OINT OS ×4 (07:49→20:02)
[2017-12-19] MEDS: VITAMIN D 1,000 INTERNATIONAL UNITS TABLET PO (07:49)
[2017-12-19] MEDS: DIAPER RELIEF PASTE (DESITIN) 60GM TOP (07:49)
[2017-12-19] MEDS: SANTYL OINT 30GM TOP (07:50)
[2017-12-19 10:17] LABS: HEMATOCRIT 31.6 % (36.0-47.0); HEMOGLOBIN 9.6 g/dl (12.0-15.5); MEAN CORPUSCULAR HEMOGLOBIN 28.8 pg (27.0-33.0); MEAN CORPUSCULAR HGB CONC 30.4 g/dl (32.0-36.5); MEAN CORPUSCULAR VOLUME 94.9 fl (80.0-96.0); PLATELET COUNT, AUTOMATED 282 10^3/uL (150-450); RED BLOOD COUNT 3.33 10^6/uL (4.00-5.40); RED CELL DISTRIBUTION WIDTH 19.8 % (11.5-14.5); WHITE BLOOD COUNT 9.3 10^3/uL (4.0-10.0)
[2017-12-19] MEDS: ONDANSETRON 4MG/2ML VIAL (J2405) IV (10:40)
[2017-12-19 11:01] LABS: ANION GAP 9 MEQ/L (8-16); BLOOD UREA NITROGEN 21 MG/DL (7-18); CALCIUM LEVEL 8.3 MG/DL (8.8-10.2); CARBON DIOXIDE LEVEL 28 MEQ/L (21-32); CHLORIDE LEVEL 102 MEQ/L (98-107); CREATININE FOR GFR 3.32 MG/DL (0.55-1.30); GLUCOSE, FASTING 122 MG/DL (70-100); POTASSIUM SERUM 4.1 MEQ/L (3.5-5.1); SODIUM LEVEL 139 MEQ/L (136-145)
[2017-12-19 12:16] LABS: BEDSIDE GLUCOSE 157 MG/DL (80-115)
[2017-12-19] MEDS: **VANCO AFTER HD** MISC XX (15:30)
[2017-12-19 17:23] LABS: BEDSIDE GLUCOSE 111 MG/DL (80-115)
[2017-12-19] MEDS: WARFARIN SOD 2 MG TAB PO (17:33)
[2017-12-19] MEDS: SIMVASTATIN 20 MG TAB PO (20:02)
[2017-12-19] MEDS: FAMOTIDINE 20 MG TAB PO (20:02)
[2017-12-19] MEDS: AMITRIPTYLINE 25 MG TAB PO (20:02)
[2017-12-19] MEDS: MIRTAZAPINE 7.5MG PER 1/2 TABLET PO (20:02)
[2017-12-19 20:36] LABS: BEDSIDE GLUCOSE 92 MG/DL (80-115)
[2017-12-20 04:36] LABS: INR 2.15; PROTHROMBIN TIME 24.4 SECONDS (12.1-14.4)
[2017-12-20] MEDS: PIPERACILLIN/TAZOBACTAM SOD 2.25 GM in D5W MINI-BAG PLUS 50 ML IV ×2 (04:59→12:30)
[2017-12-20] MEDS: LEVOTHYROXINE 150MCG TABLET (0.15MG) PO (05:34)
[2017-12-20] MEDS: SODIUM CHLORIDE 0.9% INJ 10 ML SYR IV (05:35)
[2017-12-20 05:56] LABS: HEMATOCRIT 27.1 % (36.0-47.0); HEMOGLOBIN 8.1 g/dl (12.0-15.5); MEAN CORPUSCULAR HEMOGLOBIN 28.7 pg (27.0-33.0); MEAN CORPUSCULAR HGB CONC 29.9 g/dl (32.0-36.5); MEAN CORPUSCULAR VOLUME 96.1 fl (80.0-96.0); PLATELET COUNT, AUTOMATED 252 10^3/uL (150-450); RED BLOOD COUNT 2.82 10^6/uL (4.00-5.40); RED CELL DISTRIBUTION WIDTH 19.7 % (11.5-14.5); WHITE BLOOD COUNT 7.7 10^3/uL (4.0-10.0)
[2017-12-20 06:18] LABS: INR 2.19; PROTHROMBIN TIME 24.8 SECONDS (12.1-14.4)
[2017-12-20 06:32] LABS: ANION GAP 11 MEQ/L (8-16); BLOOD UREA NITROGEN 31 MG/DL (7-18); CALCIUM LEVEL 7.4 MG/DL (8.8-10.2); CARBON DIOXIDE LEVEL 28 MEQ/L (21-32); CHLORIDE LEVEL 102 MEQ/L (98-107); CREATININE FOR GFR 4.15 MG/DL (0.55-1.30); GLOMERULAR FILTRATION RATE 11.6 (>45); GLUCOSE, FASTING 99 MG/DL (70-100); POTASSIUM SERUM 4.2 MEQ/L (3.5-5.1); SODIUM LEVEL 141 MEQ/L (136-145)
[2017-12-20 06:59] LABS: BEDSIDE GLUCOSE 102 MG/DL (80-115)
[2017-12-20] MEDS: HumaLOG INSULIN (NovoLOG) PER UNIT SC ×2 (07:41→11:59)
[2017-12-20] MEDS: ASPIRIN 81 MG ENTERIC TAB PO (08:36)
[2017-12-20] MEDS: SENOKOT S TAB PO (08:36)
[2017-12-20] MEDS: PREGABALIN 25 MG CAP (LYRICA) PO (08:36)
[2017-12-20] MEDS: (RENVELA) SEVELAMER **CARBONate** 800 MG TAB PO ×2 (08:36→11:58)
[2017-12-20] MEDS: CALCIUM CARBONATE 500 MG CHEW U/D PO ×2 (08:36→11:58)
[2017-12-20] MEDS: VITAMIN D 1,000 INTERNATIONAL UNITS TABLET PO (08:36)
[2017-12-20] MEDS: SANTYL OINT 30GM TOP (08:37)
[2017-12-20] MEDS: DIAPER RELIEF PASTE (DESITIN) 60GM TOP (08:37)
[2017-12-20] MEDS: ERYTHROMYCIN OPHTH OINT OS ×2 (08:38→12:00)
[2017-12-20 11:38] LABS: BEDSIDE GLUCOSE 161 MG/DL (80-115)
== END 2017-12-20 13:54 | DRG 638 ==
LOC: M MSPAV 12-10 13:31 → M ED 18:07 → M ED INP 20:05
PROC: 5A1D70Z Performance of Urinary Filtration, Intermittent, Less than 6 Hours Per Day (ICD-10-PCS; 2017-12-11)
PROC: 02HV33Z Insertion of Infusion Device into Superior Vena Cava, Percutaneous Approach (ICD-10-PCS; principal; 2017-12-14)
PROC: 30233N1 Transfusion of Nonautologous Red Blood Cells into Peripheral Vein, Percutaneous Approach (ICD-10-PCS; 2017-12-16)
DX: E11.621 Type 2 diabetes mellitus with foot ulcer (principal); E46 Unspecified protein-calorie malnutrition; I50.32 Chronic diastolic (congestive) heart failure; I13.2 Hypertensive heart and chronic kidney disease with heart failure and with stage 5 chronic kidney disease, or end stage renal disease; L97.229 Non-pressure chronic ulcer of left calf with unspecified severity; L97.219 Non-pressure chronic ulcer of right calf with unspecified severity; L97.426 Non-pressure chronic ulcer of left heel and midfoot with bone involvement without evidence of necrosis; Z68.42 Body mass index [BMI] 45.0-49.9, adult; L03.116 Cellulitis of left lower limb; E87.1 Hypo-osmolality and hyponatremia; M86.672 Other chronic osteomyelitis, left ankle and foot; N18.6 End stage renal disease; L97.519 Non-pressure chronic ulcer of other part of right foot with unspecified severity; E11.22 Type 2 diabetes mellitus with diabetic chronic kidney disease; E66.01 Morbid (severe) obesity due to excess calories; E78.5 Hyperlipidemia, unspecified; E03.9 Hypothyroidism, unspecified; E11.610 Type 2 diabetes mellitus with diabetic neuropathic arthropathy; I95.3 Hypotension of hemodialysis; E11.42 Type 2 diabetes mellitus with diabetic polyneuropathy; E11.319 Type 2 diabetes mellitus with unspecified diabetic retinopathy without macular edema; N25.0 Renal osteodystrophy; D63.1 Anemia in chronic kidney disease; E11.69 Type 2 diabetes mellitus with other specified complication; I65.23 Occlusion and stenosis of bilateral carotid arteries; Z99.2 Dependence on renal dialysis; Z79.82 Long term (current) use of aspirin; Z79.891 Long term (current) use of opiate analgesic; Z79.4 Long term (current) use of insulin; Z79.01 Long term (current) use of anticoagulants; Z79.899 Other long term (current) drug therapy; Z74.01 Bed confinement status; Z86.718 Personal history of other venous thrombosis and embolism; B96.20 Unspecified Escherichia coli [E. coli] as the cause of diseases classified elsewhere; B96.5 Pseudomonas (aeruginosa) (mallei) (pseudomallei) as the cause of diseases classified elsewhere; Z90.01 Acquired absence of eye

== ENCOUNTER → 2017-12-09 | Outpatient (REF) | payer MEDICARE, MEDICAID ==
[2017-12-09 11:16] LABS: PROTHROMBIN TIME 19.3 SECONDS (12.1-14.4)
== END ==
DX: Z79.01 Long term (current) use of anticoagulants (principal)

== ENCOUNTER → 2017-12-22 | Outpatient (REF) | payer MEDICARE, MEDICAID ==
[2017-12-22 09:56] LABS: HEMATOCRIT 31.3 % (36.0-47.0); HEMOGLOBIN 9.2 g/dl (12.0-15.5); MEAN CORPUSCULAR HEMOGLOBIN 29.3 pg (27.0-33.0); MEAN CORPUSCULAR HGB CONC 29.4 g/dl (32.0-36.5); MEAN CORPUSCULAR VOLUME 99.7 fl (80.0-96.0); PLATELET COUNT, AUTOMATED 287 10^3/uL (150-450); RED BLOOD COUNT 3.14 10^6/uL (4.00-5.40); RED CELL DISTRIBUTION WIDTH 20.2 % (11.5-14.5); WHITE BLOOD COUNT 8.3 10^3/uL (4.0-10.0)
== END ==
DX: N18.9 Chronic kidney disease, unspecified (principal)
CPT/HCPCS: 85027

== ENCOUNTER → 2017-12-25 | Outpatient (REF) | payer MEDICARE, MEDICAID ==
[2017-12-26 03:11] LABS: HEMATOCRIT 27.4 % (36.0-47.0); HEMOGLOBIN 8.4 g/dl (12.0-15.5); MEAN CORPUSCULAR HEMOGLOBIN 30.8 pg (27.0-33.0); MEAN CORPUSCULAR HGB CONC 30.7 g/dl (32.0-36.5); MEAN CORPUSCULAR VOLUME 100.4 fl (80.0-96.0); PLATELET COUNT, AUTOMATED 281 10^3/uL (150-450); RED BLOOD COUNT 2.73 10^6/uL (4.00-5.40); RED CELL DISTRIBUTION WIDTH 20.6 % (11.5-14.5)
[2017-12-26 03:21] LABS: INR 1.45; PROTHROMBIN TIME 17.9 SECONDS (12.1-14.4)
== END ==
DX: N93.9 Abnormal uterine and vaginal bleeding, unspecified (principal)
CPT/HCPCS: 85610

== ENCOUNTER → 2017-12-27 | Outpatient (REF) ==
[2017-12-27 09:52] LABS: HEMATOCRIT 27.8 % (36.0-47.0); HEMOGLOBIN 8.4 g/dl (12.0-15.5); MEAN CORPUSCULAR HEMOGLOBIN 30.7 pg (27.0-33.0); MEAN CORPUSCULAR HGB CONC 30.2 g/dl (32.0-36.5); MEAN CORPUSCULAR VOLUME 101.5 fl (80.0-96.0); PLATELET COUNT, AUTOMATED 264 10^3/uL (150-450); RED BLOOD COUNT 2.74 10^6/uL (4.00-5.40); RED CELL DISTRIBUTION WIDTH 20.5 % (11.5-14.5); WHITE BLOOD COUNT 12.2 10^3/uL (4.0-10.0)
== END ==
DX: N93.9 Abnormal uterine and vaginal bleeding, unspecified (principal)

== ENCOUNTER → 2017-12-28 | Outpatient (REF) | payer MEDICAID, MEDICARE ==
[2017-12-28 08:17] LABS: HEMATOCRIT 26.6 % (36.0-47.0); MEAN CORPUSCULAR HEMOGLOBIN 30.5 pg (27.0-33.0); MEAN CORPUSCULAR HGB CONC 30.1 g/dl (32.0-36.5); MEAN CORPUSCULAR VOLUME 101.5 fl (80.0-96.0); PLATELET COUNT, AUTOMATED 263 10^3/uL (150-450); RED BLOOD COUNT 2.62 10^6/uL (4.00-5.40); RED CELL DISTRIBUTION WIDTH 19.9 % (11.5-14.5)
[2017-12-28 08:28] LABS: INR 1.31; PROTHROMBIN TIME 16.5 SECONDS (12.1-14.4)
== END ==
DX: D64.9 Anemia, unspecified (principal)

== ENCOUNTER → 2017-12-29 | Outpatient (CLI) | payer MEDICARE, MEDICAID | LOC: M RAD 10:45 | DX: N93.9 Abnormal uterine and vaginal bleeding, unspecified (principal); R93.89 Abnormal findings on diagnostic imaging of other specified body structures; N32.89 Other specified disorders of bladder | CPT/HCPCS: 76856 ==

== ENCOUNTER → 2017-12-29 | Outpatient (REF) ==
[2017-12-29 09:42] LABS: HEMATOCRIT 27.1 % (36.0-47.0); HEMOGLOBIN 8.1 g/dl (12.0-15.5); MEAN CORPUSCULAR HEMOGLOBIN 29.6 pg (27.0-33.0); MEAN CORPUSCULAR HGB CONC 29.9 g/dl (32.0-36.5); MEAN CORPUSCULAR VOLUME 98.9 fl (80.0-96.0); PLATELET COUNT, AUTOMATED 303 10^3/uL (150-450); RED BLOOD COUNT 2.74 10^6/uL (4.00-5.40); RED CELL DISTRIBUTION WIDTH 19.6 % (11.5-14.5); WHITE BLOOD COUNT 7.2 10^3/uL (4.0-10.0)
[2017-12-29 16:55] LABS: GLUCOSE,RANDOM 42 MG/DL (LESS THAN 200)
== END ==
DX: N93.9 Abnormal uterine and vaginal bleeding, unspecified (principal)

== ENCOUNTER → 2017-12-30 | Outpatient (REF) ==
[2017-12-30 12:35] LABS: HEMOGLOBIN 8.9 g/dl (12.0-15.5); MEAN CORPUSCULAR HEMOGLOBIN 29.9 pg (27.0-33.0); MEAN CORPUSCULAR HGB CONC 29.7 g/dl (32.0-36.5); MEAN CORPUSCULAR VOLUME 100.7 fl (80.0-96.0); PLATELET COUNT, AUTOMATED 330 10^3/uL (150-450); RED BLOOD COUNT 2.98 10^6/uL (4.00-5.40); RED CELL DISTRIBUTION WIDTH 19.6 % (11.5-14.5); WHITE BLOOD COUNT 6.3 10^3/uL (4.0-10.0)
== END ==
DX: N93.9 Abnormal uterine and vaginal bleeding, unspecified (principal)

== ENCOUNTER 2018-01-04 13:38 | Outpatient (REF) | payer MEDICARE, MEDICAID ==
[2018-01-05 09:07] LABS: HEMATOCRIT 31.3 % (36.0-47.0); HEMOGLOBIN 9.4 g/dl (12.0-15.5); MEAN CORPUSCULAR HEMOGLOBIN 29.5 pg (27.0-33.0); MEAN CORPUSCULAR VOLUME 98.1 fl (80.0-96.0); PLATELET COUNT, AUTOMATED 270 10^3/uL (150-450); RED BLOOD COUNT 3.19 10^6/uL (4.00-5.40); RED CELL DISTRIBUTION WIDTH 18.3 % (11.5-14.5); WHITE BLOOD COUNT 6.2 10^3/uL (4.0-10.0)
[2018-01-05 09:33] LABS: ANION GAP 8 MEQ/L (8-16); BLOOD UREA NITROGEN 36 MG/DL (7-18); CALCIUM LEVEL 8.1 MG/DL (8.8-10.2); CARBON DIOXIDE LEVEL 31 MEQ/L (21-32); CHLORIDE LEVEL 100 MEQ/L (98-107); CREATININE FOR GFR 3.24 MG/DL (0.55-1.30); GLOMERULAR FILTRATION RATE 15.5 (>45); GLUCOSE, FASTING 88 MG/DL (70-100); SODIUM LEVEL 139 MEQ/L (136-145)
== END 2018-01-05 ==
DX: D64.9 Anemia, unspecified (principal)
CPT/HCPCS: 80048

== ENCOUNTER → 2018-01-11 | Outpatient (REF) ==
[2018-01-11 09:54] LABS: HEMATOCRIT 34.1 % (36.0-47.0); HEMOGLOBIN 10.4 g/dl (12.0-15.5); MEAN CORPUSCULAR HEMOGLOBIN 29.9 pg (27.0-33.0); MEAN CORPUSCULAR HGB CONC 30.5 g/dl (32.0-36.5); PLATELET COUNT, AUTOMATED 323 10^3/uL (150-450); RED BLOOD COUNT 3.48 10^6/uL (4.00-5.40); RED CELL DISTRIBUTION WIDTH 17.7 % (11.5-14.5); WHITE BLOOD COUNT 10.4 10^3/uL (4.0-10.0)
== END ==
DX: N18.6 End stage renal disease (principal)

== ENCOUNTER 2018-01-16 12:35 | Inpatient (IN) | payer MEDICARE, MEDICAID ==
[2018-01-16 13:28] LABS: BASO # 0.1 10^3/uL (0.0-0.2); BASO % 0.3 % (0.0-1.0); HEMATOCRIT 35.9 % (36.0-47.0); HEMOGLOBIN 11.1 g/dl (12.0-15.5); IMMATURE GRANULOCYTE % 0.6 % (0-3.0); LYMPH # 2.1 10^3/uL (1.5-4.5); MEAN CORPUSCULAR HEMOGLOBIN 30.1 pg (27.0-33.0); MEAN CORPUSCULAR HGB CONC 30.9 g/dl (32.0-36.5); MEAN CORPUSCULAR VOLUME 97.3 fl (80.0-96.0); MONO # 1.2 10^3/uL (0.0-0.8); MONO % 4.6 % (0.0-5.0); NEUTROPHILS # 22.1 10^3/uL (1.8-7.7); NEUTROPHILS % 86.5 % (36.0-66.0); PLATELET COUNT, AUTOMATED 294 10^3/uL (150-450); RED BLOOD COUNT 3.69 10^6/uL (4.00-5.40); WHITE BLOOD COUNT 25.6 10^3/uL (4.0-10.0)
[2018-01-16 13:39] LABS: INR 1.23; PARTIAL THROMBOPLASTIN TIME 32.6 SECONDS (25.4-37.6); PROTHROMBIN TIME 15.6 SECONDS (12.1-14.4)
[2018-01-16] MEDS: ONDANSETRON 4MG/2ML VIAL (J2405) IV (13:42)
[2018-01-16 14:02] LABS: ALBUMIN/GLOBULIN RATIO 0.28 (1.00-1.93); ALKALINE PHOSPHATASE 258 U/L (45-117); ALT/SGPT 17 U/L (12-78); AMYLASE 6 U/L (25-115); ANION GAP 10 MEQ/L (8-16); AST/SGOT 18 U/L (7-37); BILIRUBIN,DIRECT 0.3 MG/DL (0.0-0.2); BILIRUBIN,TOTAL 0.4 MG/DL (0.2-1.0); BLOOD UREA NITROGEN 37 MG/DL (7-18); CALCIUM LEVEL 7.2 MG/DL (8.8-10.2); CARBON DIOXIDE LEVEL 28 MEQ/L (21-32); CHLORIDE LEVEL 96 MEQ/L (98-107); CK-MB VALUE MASS < 1.0 NG/ML (<3.6); CPK CREATINE PHOSPHOKINASE 13 U/L (26-192); CREATININE FOR GFR 2.88 MG/DL (0.55-1.30); GLOMERULAR FILTRATION RATE 17.7 (>45); GLUCOSE, FASTING 128 MG/DL (70-100); LIPASE 19 U/L (73-393); MB/CK RELATIVE INDEX 7.69 (< OR =4); SODIUM LEVEL 134 MEQ/L (136-145); TOTAL PROTEIN 4.6 GM/DL (6.4-8.2); TROPONIN I < 0.02 NG/ML (< 0.10)
[2018-01-16 14:14] LABS: LACTIC ACID SEPSIS PROTOCOL 2.2 MMOL/L (0.4-2.0)
[2018-01-16] MEDS ORDERED: ISOVUE-370 76% 100ML VIAL (Q9967) As Ordered (14:17)
[2018-01-16] MEDS: NS 500 ML IV (14:19)
[2018-01-16] MEDS: metroNIDAZOLE 500 MG in APPROPRIATE DILUENT 1 EA IV (16:29)
[2018-01-16] MEDS: MORPHINE 2 MG/ML 1ML SYRINGE (J2270) IV (16:29)
[2018-01-16] MEDS: VANCOMYCIN ORAL SOL 250MG/5ML ORAL SYRINGE PO (17:20)
[2018-01-16] MEDS ORDERED: ACETAMINOPHEN TAB 650MG DOSE (2X325MG) PO (18:00)
[2018-01-16] MEDS ORDERED: ONDANSETRON 4MG/2ML VIAL (J2405) IV (18:00)
[2018-01-16] MEDS ORDERED: GLUCOSE 4 GM CHEW TABLET PO (18:30)
[2018-01-16] MEDS ORDERED: DEXTROSE 50% 50 ML SYRINGE IV (18:30)
[2018-01-16] MEDS ORDERED: GLUCAGON FOR INJ 1 MG VIAL (J1610) SC (18:30)
[2018-01-16] MEDS: NS 1,000 ML IV ×2 (19:15→22:12)
[2018-01-16 19:53] LABS: INR 1.42; PROTHROMBIN TIME 17.6 SECONDS (12.1-14.4)
[2018-01-16] MEDS: PREGABALIN 25 MG CAP (LYRICA) PO (22:11)
[2018-01-16] MEDS: ERYTHROMYCIN OPHTH OINT OS (22:12)
[2018-01-16] MEDS: HEPARIN SOD (PORCINE) 5000 UNITS/ML VIAL SQ (22:12)
[2018-01-16] MEDS: MIRTAZAPINE 15 MG TAB PO (22:12)
[2018-01-16] MEDS: SIMVASTATIN 20 MG TAB PO (22:12)
[2018-01-16] MEDS: PANTOPRAZOLE 40MG INJ (PROTONIX) (C9113) IV (22:12)
[2018-01-16] MEDS: PERCOCET 5MG/325MG TAB PO (22:27)
[2018-01-17] MEDS: metroNIDAZOLE 500 MG in APPROPRIATE DILUENT 1 EA IV (00:31)
[2018-01-17] MEDS: VANCOMYCIN ORAL SOL 250MG/5ML ORAL SYRINGE PO ×2 (01:04→05:56)
[2018-01-17 01:09] LABS: BEDSIDE GLUCOSE 144 MG/DL (80-115)
[2018-01-17 05:27] LABS: HEMATOCRIT 32.1 % (36.0-47.0); MEAN CORPUSCULAR HEMOGLOBIN 30.2 pg (27.0-33.0); MEAN CORPUSCULAR HGB CONC 31.2 g/dl (32.0-36.5); PLATELET COUNT, AUTOMATED 248 10^3/uL (150-450); RED BLOOD COUNT 3.31 10^6/uL (4.00-5.40); RED CELL DISTRIBUTION WIDTH 19.1 % (11.5-14.5); WHITE BLOOD COUNT 24.7 10^3/uL (4.0-10.0)
[2018-01-17 05:48] LABS: ANION GAP 10 MEQ/L (8-16); BLOOD UREA NITROGEN 44 MG/DL (7-18); CALCIUM LEVEL 7.1 MG/DL (8.8-10.2); CARBON DIOXIDE LEVEL 25 MEQ/L (21-32); CHLORIDE LEVEL 100 MEQ/L (98-107); CREATININE FOR GFR 3.21 MG/DL (0.55-1.30); GLOMERULAR FILTRATION RATE 15.6 (>45); GLUCOSE, FASTING 141 MG/DL (70-100); POTASSIUM SERUM 4.4 MEQ/L (3.5-5.1); SODIUM LEVEL 135 MEQ/L (136-145)
[2018-01-17] MEDS: HEPARIN SOD (PORCINE) 5000 UNITS/ML VIAL SQ (05:56)
[2018-01-17] MEDS: LEVOTHYROXINE 150MCG TABLET (0.15MG) PO (05:56)
[2018-01-17] MEDS ORDERED: FLEET OIL RETENTION ENEMA PR (08:00)
[2018-01-17] MEDS: FLEET OIL RETENTION ENEMA PR (08:15)
[2018-01-17] MEDS ORDERED: MULTIVITAMINS/MINERALS THERAP 1 TAB PO (09:00)
[2018-01-17] MEDS ORDERED: SENOKOT S TAB PO (09:00)
[2018-01-17] MEDS ORDERED: LEVEMIR (INSULIN DETEMIR) 1 UNITS/0.01ML SC (09:00)
[2018-01-17] MEDS ORDERED: MOM 30ML SUSPENSION UDC PO (09:00)
[2018-01-17] MEDS: NS 1,000 ML IV ×3 (09:51→11:45)
[2018-01-17] MEDS: PIPERACILLIN/TAZOBACTAM SOD 2.25 GM in D5W MINI-BAG PLUS 50 ML IV (10:04)
[2018-01-17] MEDS: VANCOMYCIN HCL 1,000 MG, VIAL MATE ADAPTER 1 EACH in D5W 250 ML IV (11:33)
[2018-01-17] MEDS ORDERED: HYOSCYAMINE SULFATE 0.125 MG SUBL TABLET PO (12:00)
[2018-01-17] MEDS ORDERED: LORazepam 1 MG TAB PO (12:00)
[2018-01-17] MEDS ORDERED: NOREPINEPHRINE BITARTRATE 8 MG in D5W 492 ML IV (12:00)
[2018-01-17] MEDS ORDERED: MORPHINE 10MG/0.5ML ORAL CONCENTRATE SOLUTION U/D SL (12:00)
[2018-01-17] MEDS ORDERED: SCOPOLAMINE 1MG TRANSDERMAL PATCH TOP (12:00)
[2018-01-17] MEDS: MORPHINE 4 MG/ML 1ML VIAL/SYRINGE (J2270) IV ×7 (12:24→22:12)
[2018-01-17] MEDS ORDERED: **VANCO AFTER HD** MISC XX (16:00)
[2018-01-17] MEDS: LORazepam 2 MG/ML VIAL (J2060) IV ×2 (17:26→20:06)
[2018-01-17] MEDS ORDERED: PIPERACILLIN/TAZOBACTAM SOD 2.25 GM in D5W MINI-BAG PLUS 50 ML IV (18:00)
[2018-01-18] MEDS: LORazepam 2 MG/ML VIAL (J2060) IV ×2 (01:54→06:27)
[2018-01-18] MEDS: MORPHINE 4 MG/ML 1ML VIAL/SYRINGE (J2270) IV ×2 (01:55→06:27)
[2018-01-18] MEDS ORDERED: VANCOMYCIN HCL 1,000 MG, VIAL MATE ADAPTER 1 EACH in D5W 250 ML IV (16:00)
== END 2018-01-18 07:00 | disposition expired | DRG 871 ==
LOC: M ICU 01-17 10:06 → M MS5PR 01-17 18:48 → M ED 12:35 → M ED INP 17:58 → M PCU 20:49
DX: A41.9 Sepsis, unspecified organism (principal); N18.6 End stage renal disease; K56.2 Volvulus; K55.049 Acute infarction of large intestine, extent unspecified; R65.21 Severe sepsis with septic shock; I50.32 Chronic diastolic (congestive) heart failure; I13.2 Hypertensive heart and chronic kidney disease with heart failure and with stage 5 chronic kidney disease, or end stage renal disease; E11.22 Type 2 diabetes mellitus with diabetic chronic kidney disease; E11.319 Type 2 diabetes mellitus with unspecified diabetic retinopathy without macular edema; E11.42 Type 2 diabetes mellitus with diabetic polyneuropathy; Z51.5 Encounter for palliative care; Z66 Do not resuscitate; E66.01 Morbid (severe) obesity due to excess calories; E11.621 Type 2 diabetes mellitus with foot ulcer; E11.51 Type 2 diabetes mellitus with diabetic peripheral angiopathy without gangrene; L97.529 Non-pressure chronic ulcer of other part of left foot with unspecified severity; E11.610 Type 2 diabetes mellitus with diabetic neuropathic arthropathy; K21.9 Gastro-esophageal reflux disease without esophagitis; E78.5 Hyperlipidemia, unspecified; E03.9 Hypothyroidism, unspecified; I65.23 Occlusion and stenosis of bilateral carotid arteries; Z86.718 Personal history of other venous thrombosis and embolism; Z99.2 Dependence on renal dialysis; Z79.4 Long term (current) use of insulin; Z79.899 Other long term (current) drug therapy; Z91.040 Latex allergy status; Z74.01 Bed confinement status